=== PATIENT | male | born 1990 | race Hispanic/Latino ===

== ENCOUNTER 2017-04-21 20:42 | Inpatient (IN) | payer BC ==
[~2017-04-21 20:42] MED LIST: ISOVUE-370 76%-LOCM 1 ML ONE
[2017-04-21 21:31] LABS: Bilirubin Small (Negative); Blood, Urine Negative (Negative); Clarity CLEAR (Clear); Glucose, Urine (Dipstick) Negative (Negative); Leukocyte Negative (Negative); Nitrite Negative (Negative); Protein, Urine (Dipstick) Negative (Neg-Trace); Specific Gravity, Urine 1.031 (1.002-1.036); pH, Urine 6.5 (5.0-9.0)
[2017-04-21 21:38] LABS: #Eosinphils 0.3 thou/uL (0.0-0.7); #Lymphocytes 1.9 thou/uL (1.20-3.40); #Monocytes 0.8 thou/uL (0.11-0.59); #Neutrophils 4.5 thou/uL (1.40-6.50); %Basophils 0.3 % (0.0-1.0); %Eosinophils 3.7 % (0.0-10.0); %Lymphocytes 25.1 % (21.0-51.0); %Monocytes 10.5 % (0.0-10.0); %Neutrophils 60.4 % (42.0-75.0); Hemoglobin 14.8 g/dL (14.0-18.0); Mean Corpuscular HGB CONC 32.4 g/dL (32.0-36.0); Mean Corpuscular Hemoglobin 26.8 pg (27.0-31.0); Mean Corpuscular Volume 82.7 fl (80.0-94.0); Mean Platelet Volume 6.5 fL (7.4-10.4); Platelet Count 220 thou/uL (130-400); RBC Distribution Width 12.4 % (11.5-14.5); Red Blood Cell (RBC) Count 5.52 mill/uL (4.70-6.10); White Blood Cell (WBC) Count 7.4 thou/uL (4.8-10.8)
[2017-04-21 21:59] LABS: ALT (SGPT) 20 U/L (8-55); AST (SGOT) 15 U/L (5-34); Albumin 4.3 g/dL (3.5-5.0); Alkaline Phosphatase 68 U/L (40-150); Anion Gap 13 mmol/L (10-20); BUN (Urea Nitrogen) 14 mg/dL (8.9-20.6); Bilirubin, Total 0.4 mg/dL (0.2-1.2); Calc. Creatinine Clearance 0 mL/min (70-130); Carbon Dioxide 24 mmol/L (22-29); Chloride 105 mmol/L (98-107); Estimated GFR-MDRD 83; Globulin 2.7 g/dL (2.4-3.5); Glucose 94 mg/dL (70-105); Lipase 12 U/L (8-78); Potassium 4.1 mmol/L (3.5-5.1); Sodium 138 mmol/L (136-145)
--- NOTE | 2017-04-21 23:47 | CT ---
CT ABDOMEN AND PELVIS WITH CONTRAST 04/21/17 Multiple axial tomograms obtained through the abdomen and pelvis with IV enhancement. HISTORY: Abdominal pain. History of Crohn's disease. Diarrhea and nausea. FINDINGS: The lung bases are clear. Liver, spleen and pancreas are unremarkable. Stomach and duodenum unremarkable. Review of the small bowel reveals an abnormally dilated loop of small bowel in the lower abdomen/pelv is. This appears to represent a loop of mid to distal ileum. It measures up to 6 cm diameter in the a xial plane. It is a short segment of dilatation. Small bowel on each end of this dilated segment is d ecompressed and normal in caliber. No evidence of mural thickening. The appendix appears normal. The colon is unremarkable. No adenopathy identified. IMPRESSION: There is an abnormally dilated loop of what appears to be small bowel in the lower abdomen located in the mid pelvis region. This may be related to patient's known history of Crohn's disease. There is n o evidence of mural thickening associated with this loop of dilated bowel. Recommend GI consultation and consider dedicated small bowel exam such as CT enterography or routine small bowel exam with barium. POS: SYDNEY
[2017-04-22] MEDS ORDERED: Morphine 4 MG/ML Carpuject ONE ×2 (00:07→02:36)
[2017-04-22] MEDS ORDERED: methylPREDNISolone Sod Succ/PF 125 MG/2 ML VIAL ONE (00:48)
[2017-04-22] MEDS ORDERED: Water For Inject, Bacteriostat 30 ML ONE (00:48)
[2017-04-22] MEDS ORDERED: Ondansetron ODT 4 MG TAB PO PRN (03:20)
[2017-04-22] MEDS ORDERED: Ondansetron HCl/PF 4 MG/2 ML Vial IVP PRN ×2 (03:20→03:23)
[2017-04-22] MEDS ORDERED: Acetaminophen 325 MG TAB PO PRN (03:20)
[2017-04-22] MEDS ORDERED: Senokot 8.6 MG TAB PO PRN (03:20)
[2017-04-22] MEDS ORDERED: Calcium Carbonate 500 MG ChewTAB PO PRN (03:20)
[2017-04-22] MEDS ORDERED: hydrALAZINE 20 MG/ML VIAL SLOW IVP PRN (03:20)
[2017-04-22] MEDS ORDERED: Morphine 2 MG/ML SYRINGE SLOW IVP PRN (03:23)
[2017-04-22] MEDS ORDERED: Ondansetron ODT 4 MG TAB SL PRN (03:23)
[2017-04-22] MEDS ORDERED: Sodium Chloride 0.45% 1,000 ML IV SCH (03:30)
[2017-04-22] MEDS: Sodium Chloride 0.9% 1,000 ML IV SCH ×2 (03:59→19:29)
[2017-04-22] MEDS: metroNIDAZOLE 500 MG in Premix Bag 1 BAG IVPB SCH ×3 (05:32→20:42)
[2017-04-22 06:00] LABS: #Monocytes 0.2 thou/uL (0.11-0.59); #Neutrophils 6.2 thou/uL (1.40-6.50); %Basophils 0.1 % (0.0-1.0); %Eosinophils 0.6 % (0.0-10.0); %Lymphocytes 13.6 % (21.0-51.0); %Neutrophils 83.7 % (42.0-75.0); Hemoglobin 14.9 g/dL (14.0-18.0); Mean Corpuscular HGB CONC 33.1 g/dL (32.0-36.0); Mean Corpuscular Hemoglobin 27.2 pg (27.0-31.0); Mean Corpuscular Volume 82.3 fl (80.0-94.0); Mean Platelet Volume 6.6 fL (7.4-10.4); Platelet Count 235 thou/uL (130-400); RBC Distribution Width 12.2 % (11.5-14.5); Red Blood Cell (RBC) Count 5.48 mill/uL (4.70-6.10); White Blood Cell (WBC) Count 7.4 thou/uL (4.8-10.8)
[2017-04-22 06:14] LABS: ALT (SGPT) 21 U/L (8-55); AST (SGOT) 15 U/L (5-34); Albumin 4.4 g/dL (3.5-5.0); Alkaline Phosphatase 69 U/L (40-150); Anion Gap 13 mmol/L (10-20); BUN (Urea Nitrogen) 11 mg/dL (8.9-20.6); Bilirubin, Total 0.4 mg/dL (0.2-1.2); Calc. Creatinine Clearance 151 mL/min (70-130); Calcium 9.4 mg/dL (7.8-10.44); Carbon Dioxide 24 mmol/L (22-29); Chloride 106 mmol/L (98-107); Estimated GFR-MDRD 88; Globulin 2.9 g/dL (2.4-3.5); Glucose 114 mg/dL (70-105); Iron 51 ug/dL (65-175); Iron Binding Capacity, Total 310 mcg/dL (261-462); Potassium 4.8 mmol/L (3.5-5.1); Protein, Total 7.3 g/dL (6.0-8.3); Sodium 138 mmol/L (136-145)
--- NOTE | 2017-04-22 07:21 | HP ---
DATE OF ADMISSION: 04/22/2017 PRIMARY CARE PHYSICIAN: [facility]. CHIEF COMPLAINT: Abdominal discomfort. HISTORY OF PRESENT ILLNESS: Patient is a 27-year-old male with inflammatory bowel disease who presented to the emergency room with above complaints. The patient was diagnosed with inflammatory bowel disease in 2014. He used to be on prednisone in the past. Currently, he is on no medications. He was recently seen by Dr. Banks, Gastroenterology. He was scheduled to get EGD and colonoscopy as well as CT enterography next week. Over the last 24 hours, the patient developed gradual worsening pain in the left upper quadrant that started after eating breakfast. He also felt nauseous without any vomiting. He had watery stool as well. He denies any fevers, chills, sick contacts, recent travel. No generalized fatigue, joint pain, oral ulcers, hematochezia or hematemesis reported. His pain was sharp in nature, 8/ 10, crampy in nature. It was worse with eating. In the emergency room, initial vital signs showed temperature 98.8, respiration of 16, pulse of 53, blood pressure 122/78 with O2 saturation of 99% on room air. He underwent a CT scan of the abdomen and pelvis that showed abnormally dilated loops of small bowel in lower abdomen, located in the mid pelvis region. He was started on IV steroids with IV fluids after discussion with on- call Gastroenterology. He also received total of 8 mg morphine in the emergency room. PAST MEDICAL HISTORY: 1. Inflammatory bowel disease diagnosed in 2014. The patient discontinued taking steroids. 2. Chronic anemia. PAST SURGICAL HISTORY: Colonoscopy at [facility]. He is scheduled for EGD and colonoscopy next week. ALLERGIES: No known drug allergies. CURRENT HOME MEDICATIONS: Reviewed with the patient and none. SOCIAL HISTORY: Patient chews tobacco. He drinks alcohol socially, no drug use. FAMILY HISTORY: Negative for heart disease or colon malignancies. REVIEW OF SYSTEMS: The following complete review of systems was negative, unless otherwise mentioned in the HPI or below: Constitutional: Weight loss or gain, ability to conduct usual activities. Skin: Rash, itching. Eyes: Double vision, pain. ENT/Mouth: Nose bleeding, neck stiffness, pain, tenderness. Cardiovascular: Palpitations, dyspnea on exertion, orthopnea. Respiratory: Shortness of breath, wheezing, cough, hemoptysis, fever or night sweats. Gastrointestinal: Poor appetite, abdominal pain, heartburn, nausea, vomiting, constipation, or diarrhea. Genitourinary: Urgency, frequency, dysuria, nocturia. Musculoskeletal: Pain, swelling. Neurologic/Psychiatric: Anxiety, depression. Allergy/Immunologic: Skin rash, bleeding tendency. PHYSICAL EXAMINATION: VITAL SIGNS: As discussed above. GENERAL: A 27-year-old male in mild distress due to abdominal discomfort. HEENT: Head is atraumatic, normocephalic. Sclerae are anicteric. Moist mucous membrane, no oral lesion. NECK: Supple, no JVD appreciated. No carotid bruit. LUNGS: Clear to auscultation bilaterally. No wheezing or rales. HEART: S1, S2 present. Regular rate and rhythm. No murmurs, rubs or gallops appreciated. ABDOMEN: Soft. There was diffuse tenderness mainly localized on the left side. No rebound, guarding, no costovertebral angle tenderness noted. SKIN: Warm and dry. LYMPH NODES: No palpable lymph nodes in the neck. PERIPHERAL VASCULAR: Radial pulses palpable bilaterally. MUSCULOSKELETAL: No joint swelling or tenderness. LABORATORY FINDINGS AND IMAGING: CBC showed WBC 7.4 with hemoglobin 14.8, platelet of 220. Chemistries showed sodium 138, potassium 4.1, chloride 105, bicarbonate 24, BUN 14, creatinine 1.08. CRP was 1.84. Urinalysis was negative for WBC or bacteria. Influenza testing was negative. CT scan of the abdomen and pelvis by my review as discussed above. IMPRESSION: 1. Inflammatory bowel disease exacerbation (Crohn's flare). 2. Nausea with diarrhea, probably secondary to #1. 3. Chronic kidney disease stage 2. 4. Obesity with a BMI of 33.7 5. Ongoing tobacco abuse. The patient was counseled. 6. History of inflammatory bowel disease with medication noncompliance in the past. 7. Deep venous thrombosis prophylaxis with sequential compression devices. Walking program will be consulted. PLAN: The patient will be monitored on the medical floor. IV steroids has been started. We will get stool workup. We will start him on IV Cipro and Flagyl. We will add probiotics. IV hydration. Consult Gastroenterology. Check iron profile, vitamin B12, folic acid. We will check stool for ova and parasite. Clear liquid diet. Vitals q.4 hours. Plan of care was discussed with the patient. He stated understanding. MTDD
[2017-04-22] MEDS: Saccharomyces boulardii 250 MG CAP PO SCH (08:53)
[2017-04-22] MEDS: Famotidine 20 MG TAB PO SCH ×2 (08:53→20:42)
[2017-04-22] MEDS ORDERED: Docusate 100 MG CAP PO SCH (09:00)
[2017-04-22] MEDS: Morphine 4 MG/ML Carpuject SLOW IVP PRN (15:27)
--- NOTE | 2017-04-22 16:38 | CON ---
DATE OF CONSULTATION: 04/22/2017 REASON FOR CONSULTATION: Abdominal pain, history of Crohn disease. HISTORY OF PRESENT ILLNESS: Mr. Dominguez is a 27-year-old apparently just saw Dr. Nicholas Banks in [facility] this past Sunday or the Sunday before with Crohn disease. He was diagnosed in 2014 and re ports he was seeing a doctor in [facility]. It sounds like he presented initially in 2 015 with severe iron deficiency anemia and had upper and lower endoscopies and was given iron and the n IV iron and then ultimately had a capsule endoscopy of small bowel which he reports showed ulcers i n the small intestine. After that he was started on Remicade. He was on that for about 6 months whe n ultimately he was still having cramping and pain and his doctor thought that it was not working, so he has tried some different medications. He does not know what these were. At times ,he has been o n Asacol, Bentyl, Levsin and steroids. He had not been on anything about 6 months when he had gone t o see his PCP and talked to him about switching to another doctor and was referred to Dr. Banks. Dr. Banks saw him last week and had him set up for a CT enterography and endoscopies this coming week. Th e patient, however, had worsening abdominal cramping and pain and presented to the emergency room las t night at about midnight with intermittent sharp left upper quadrant pain that had started early on Sunday. When he tried to eat anything, it would get worse. He was having some diarrhea and nausea , but no vomiting. He had no recent sick contacts, no fever, no change in medications. In the emerg ency room he told the doctor he felt like this was not a Crohn flare as the Crohn pain was usually mo re diffuse. This was more focal. REVIEW OF SYSTEMS: Constitutional: No rashes or arthralgias, ocular changes, oral ulcers, myalgias or fever. HEENT, cardiovascular, respiratory, musculoskeletal, skin, neurologic, psychiatric all oth erwise negative as per HPI. PAST MEDICAL HISTORY: 1. Apparently the patient was diagnosed with Crohn disease in 2014 with treatment history outlined a bradly. 2. Prior history of anemia associated with his Crohn disease. PAST SURGICAL HISTORY: Previous endoscopies, upper and lower, as well as a capsule endoscopy of the small bowel. He reports that capsule was retained. SOCIAL HISTORY: The patient smokes. He drinks alcohol at times. Denies drug use. ALLERGIES: None known. MEDICATIONS AT HOME: None. MEDICATIONS HERE IN THE HOSPITAL: He was started on Pepcid, Cipro 400 mg IV b.i.d., Flagyl 500 mg t. i.d., Solu-Medrol 20 IV q.8 hours, Zofran, Saccharomyces boulardii, normal saline at 80 an hour. PHYSICAL EXAMINATION: GENERAL: He is a well-nourished, well-developed, muscular young man. VITAL SIGNS: Temperature is 97.5. He has been afebrile since admission, pulse 63, blood pressure 12 . HEENT: Oropharynx without lesions. NECK: Supple, without adenopathy. LUNGS: Clear. HEART: Regular rate and rhythm without clicks or murmurs. ABDOMEN: Soft, nontender. There is no rebound. There is no guarding. Bowel sounds are positive bu t not real loud. EXTREMITIES: No clubbing, cyanosis or edema. RECTAL: Deferred. LABORATORY STUDIES: White count 7.4, hemoglobin 14.9, platelet count 235. Sodium 138, potassium 4.8 , BUN and creatinine are 11 and 1. Liver function test normal, iron 51, TIBC 310, B12 of 399. Folat e 8, lipase 12. CT scan reviewed with Radiology that showed an area of dilation in the terminal ileu m and also an area dilated with a small bowel in the midline which seems to be proximal to the termin al ileum and from the terminal ileum by normal caliber bowel loops. This loop was about 6 cm in size, dilated. There is no active inflammation seen in the area. ASSESSMENT: History of Crohn disease, previous treatment with Remicade and 5-ASA drugs, but it is un clear what else has been treated with. Apparently he has been seen in the office recently. Dr. Banks requested those records. He has been without treatment for some time and now presents with worsenin g colicky abdominal pain. He has a CAT scan showing dilated terminal ileum and separate dilated loop of small bowel up to 6 cm in the mid distal small bowel. This may be more associated with chronic f ibrotic disease. PLAN: IV steroids, IV antibiotics, and observation. Consider CT enterography in a few days and see if the CT scan is changed. If it is not, it may be reasonable to consult surgery for fibrostenotic C rohn's and then started on biologic therapy after surgery. Other alternative will be to start some b iologic therapy here; however, he has been on Remicade already which has worked fastest and he probab ly cannot get on that again as he has been off for some time, he would be at high risk for untoward i nfusion reaction. I discussed these issues with the patient and his grandparents at bedside. Dr. Wright se like to resume his care tomorrow.
[2017-04-23 05:44] LABS: #Lymphocytes 1.1 thou/uL (1.20-3.40); #Monocytes 0.5 thou/uL (0.11-0.59); #Neutrophils 7.3 thou/uL (1.40-6.50); %Basophils 0.4 % (0.0-1.0); %Eosinophils 0.1 % (0.0-10.0); %Monocytes 5.1 % (0.0-10.0); %Neutrophils 82.4 % (42.0-75.0); Hemoglobin 15.1 g/dL (14.0-18.0); Mean Corpuscular HGB CONC 32.9 g/dL (32.0-36.0); Mean Corpuscular Hemoglobin 27.1 pg (27.0-31.0); Mean Corpuscular Volume 82.5 fl (80.0-94.0); Mean Platelet Volume 6.5 fL (7.4-10.4); Platelet Count 258 thou/uL (130-400); RBC Distribution Width 12.4 % (11.5-14.5); Red Blood Cell (RBC) Count 5.59 mill/uL (4.70-6.10); White Blood Cell (WBC) Count 8.9 thou/uL (4.8-10.8)
[2017-04-23] MEDS: metroNIDAZOLE 500 MG in Premix Bag 1 BAG IVPB SCH ×3 (05:44→20:39)
[2017-04-23] MEDS: Morphine 4 MG/ML Carpuject SLOW IVP PRN ×2 (05:50→20:07)
[2017-04-23 06:07] LABS: ALT (SGPT) 20 U/L (8-55); AST (SGOT) 16 U/L (5-34); Albumin 4.3 g/dL (3.5-5.0); Alkaline Phosphatase 69 U/L (40-150); Anion Gap 15 mmol/L (10-20); BUN (Urea Nitrogen) 10 mg/dL (8.9-20.6); Bilirubin, Total 0.4 mg/dL (0.2-1.2); Calc. Creatinine Clearance 157 mL/min (70-130); Calcium 9.3 mg/dL (7.8-10.44); Carbon Dioxide 19 mmol/L (22-29); Chloride 107 mmol/L (98-107); Estimated GFR-MDRD Greater than 90; Globulin 2.8 g/dL (2.4-3.5); Glucose 122 mg/dL (70-105); Potassium 4.2 mmol/L (3.5-5.1); Protein, Total 7.1 g/dL (6.0-8.3); Sodium 137 mmol/L (136-145)
[2017-04-23] MEDS ORDERED: Docusate 100 MG CAP PO PRN (06:45)
[2017-04-23] MEDS ORDERED: Simethicone Chewable 80 MG TAB PO PRN (06:45)
[2017-04-23] MEDS: Famotidine 20 MG TAB PO SCH ×2 (08:51→20:44)
[2017-04-23] MEDS: Saccharomyces boulardii 250 MG CAP PO SCH (08:51)
[2017-04-23] MEDS: Sodium Chloride 0.9% 1,000 ML IV SCH (11:55)
--- NOTE | 2017-04-23 14:39 | PRG ---
DATE OF SERVICE: 04/23/2017 SUBJECTIVE: Levi is feeling okay today. His intermittent abdominal pain persists with oral inta ke. He is tolerating his clear liquid diet just fine, a bit worried about taking anything more solid . There has been no vomiting today. He has been hemodynamically stable. He otherwise has no compla ints. OBJECTIVE: VITAL SIGNS: Temperature 97.8, pulse 55, blood pressure 116/71, 98% oxygen saturation on room air. GENERAL: In no acute distress. HEART: Regular rate and rhythm. LUNGS: Clear to auscultation bilaterally. ABDOMEN: Mild distention, tympanitic. Bowel sounds are hypoactive, but present, soft with mild diff use tenderness to palpation. EXTREMITIES: No peripheral edema. LABORATORY STUDIES: Sodium 137, potassium 4.2, BUN 10, creatinine 0.99. LFTs all normal. Vitamin B 12 and folic acid normal. Ferritin normal at 98.35. WBC 8.9, hemoglobin 15.1, platelets 258. ASSESSMENT AND PLAN: 1. Crohn's disease of the small bowel. 2. Ileal stricture. 3. Abdominal pain. The patient's imaging suggests a couple areas of stricture in the ileum. He is likely having acute o bstructive or semi-obstructive episodes underlying his abdominal pain. The question is how much of t he narrowing is due to active inflammation versus how much represents a fibrostenotic disease, which would be less responsive to medication. I think we should give him another day or two of the IV ster oids to see how much his symptoms improve, try to slowly advance his diet as tolerated. In the end, he will need to be on a low-residue diet. If we cannot really make symptomatic progress with the IV steroids over the next couple of days, then we would need to consider going ahead and getting surgica l consultation, and then we would likely start a biologic agent several weeks following surgery.
--- NOTE | 2017-04-23 17:16 | PDOC.PN ---
- Subjective Encounter Start Date: 04/23/17 Encounter Start Time: 09:00 Patient seen and examined. Abd discomfort slowly improving. No N/V/BM. No overnight events - Objective Resuscitation Status: Resuscitation Status FULL:Full Resuscitation MAR Reviewed: Yes Vital Signs & Weight: Vital Signs (12 hours) Temp Pulse Resp BP Pulse Ox 04/23/17 15:20 97.8 F 51 L 14 114/62 99 04/23/17 11:20 97.8 F 55 L 14 116/71 98 04/23/17 08:00 97.8 F 56 L 16 04/23/17 07:10 97.8 F 56 L 16 121/56 L 100 04/23/17 05:35 97.7 F 51 L 18 109/57 L 99 Weight Admit Weight 214 lb 15.904 oz Weight 209 lb I&O: 04/22/17 04/23/17 04/24/17 06:59 06:59 06:59 Intake Total 550 480 Balance 550 480 Result Diagrams: 04/23/17 05:19 04/23/17 05:19 Phys Exam - Physical Examination Constitutional: NAD Respiratory: no wheezing, no rhonchi Cardiovascular: RRR, no rub Gastrointestinal: soft, positive bowel sounds mild gen tenderness Musculoskeletal: no edema Neurological: non-focal, moves all 4 limbs Psychiatric: A&O x 3 Dx/Plan - Plan DVT proph w/SCDs IMPRESSION: 1. Inflammatory bowel disease exacerbation (Crohn's flare). 2. Nausea with diarrhea, probably secondary to #1. 3. Chronic kidney disease stage 2. 4. Obesity with a BMI of 33.7 5. Ongoing tobacco abuse. Counseled. 6. History of inflammatory bowel disease with medication noncompliance in the past. PLAN: * Cont IVF/Steroids/Atbx * GI following * No BM for stool sample * Cont other meds as below * AM labs Review of Systems - Review of Systems Respiratory: negative: Cough, Dry, Shortness of Breath, Hemoptysis, SOB with Excertion, Pleuritic Pain, Sputum, Wheezing Cardiovascular: negative: chest pain, palpitations, orthopnea, paroxysmal nocturnal dyspnea, edema, light headedness - Medications/Allergies Allergies/Adverse Reactions: Allergies Allergy/AdvReac Type Severity Reaction Status Date / Time No Known Drug Allergies Allergy Verified 04/22/17 03:21 Medications: Current Medications Acetaminophen (Tylenol) 650 mg PO Q4H PRN PRN Reason: Headache/Fever or Pain Calcium Carbonate (Tums) 1,000 mg PO Q4H PRN PRN Reason: Heartburn or Indigestion Docusate Sodium (Colace) 100 mg PO DAILYPRN PRN PRN Reason: Constipation Famotidine (Pepcid) 20 mg PO BID [facility] Last Admin: 04/23/17 08:51 Dose: 20 mg Hydralazine HCl (Apresoline) 10 mg SLOW IVP Q4H PRN PRN Reason: SBP Greater Than 180 Ciprofloxacin/Dextrose 400 mg/ (Device) 200 mls @ 200 mls/hr IVPB 0330,1530 [facility] Last Admin: 04/23/17 14:58 Dose: 200 mls Metronidazole 500 mg/ Device 100 mls @ 100 mls/hr IVPB 0430,1230,2030 [facility] Last Admin: 04/23/17 11:52 Dose: 100 mls Sodium Chloride (Normal Saline 0.9%) 1,000 mls @ 80 mls/hr IV .[id number] [facility] Last Admin: 04/23/17 11:55 Dose: 1,000 mls Methylprednisolone Sodium Succinate (Solu-Medrol) 20 mg IVP 0100,0900,1700 [facility] Last Admin: 04/23/17 16:22 Dose: 20 mg Morphine Sulfate (Morphine) 2 mg SLOW IVP Q2H PRN PRN Reason: Pain Last Admin: 04/23/17 05:50 Dose: 2 mg Ondansetron HCl (Zofran Odt) 4 mg PO Q6H PRN PRN Reason: Nausea/Vomiting Ondansetron HCl (Zofran) 4 mg IVP Q6H PRN PRN Reason: Nausea/Vomiting Saccharomyces Boulardii (Florastor) 250 mg PO DAILY [facility] Last Admin: 04/23/17 08:51 Dose: 250 mg Simethicone (Mylicon Chewable) 80 mg PO PCHS PRN PRN Reason: Gas Pain Sodium Chloride (Flush - Normal Saline) 10 ml IVF PRN PRN PRN Reason: Saline Flush Last Admin: 04/23/17 00:14 Dose: 10 ml Sodium Chloride (Flush - Normal Saline) 10 ml IVF BID [facility] Last Admin: 04/23/17 08:55 Dose: 10 ml
[2017-04-24] MEDS: metroNIDAZOLE 500 MG in Premix Bag 1 BAG IVPB SCH ×3 (04:55→19:52)
[2017-04-24 05:50] LABS: #Lymphocytes 1.7 thou/uL (1.20-3.40); #Monocytes 0.7 thou/uL (0.11-0.59); %Basophils 0.3 % (0.0-1.0); %Eosinophils 0.1 % (0.0-10.0); %Lymphocytes 17.5 % (21.0-51.0); %Monocytes 7.3 % (0.0-10.0); %Neutrophils 74.8 % (42.0-75.0); Mean Corpuscular HGB CONC 32.4 g/dL (32.0-36.0); Mean Corpuscular Hemoglobin 26.8 pg (27.0-31.0); Mean Corpuscular Volume 82.8 fl (80.0-94.0); Mean Platelet Volume 6.9 fL (7.4-10.4); Platelet Count 258 thou/uL (130-400); RBC Distribution Width 12.2 % (11.5-14.5); Red Blood Cell (RBC) Count 5.61 mill/uL (4.70-6.10); White Blood Cell (WBC) Count 9.4 thou/uL (4.8-10.8)
[2017-04-24 06:06] LABS: Anion Gap 13 mmol/L (10-20); BUN (Urea Nitrogen) 11 mg/dL (8.9-20.6); Calc. Creatinine Clearance 135 mL/min (70-130); Calcium 9.3 mg/dL (7.8-10.44); Carbon Dioxide 21 mmol/L (22-29); Chloride 107 mmol/L (98-107); Estimated GFR-MDRD 81; Glucose 91 mg/dL (70-105); Potassium 4.3 mmol/L (3.5-5.1); Sodium 137 mmol/L (136-145)
[2017-04-24] MEDS: Saccharomyces boulardii 250 MG CAP PO SCH (08:53)
[2017-04-24] MEDS: Famotidine 20 MG TAB PO SCH ×2 (08:53→19:53)
[2017-04-24] MEDS: Sodium Chloride 0.9% 1,000 ML IV SCH ×2 (08:58→22:08)
[2017-04-24] MEDS: traMADol HCl 50 MG TAB PO PRN ×2 (11:03→19:52)
--- NOTE | 2017-04-24 13:40 | PRG ---
DATE OF SERVICE: 04/24/2017 GASTROINTESTINAL INPATIENT DAILY PROGRESS NOTE SUBJECTIVE: Levi is feeling about the same today. He says he really has not been very hungry. Oral intake has been minimal today. He tried to eat some grits and increase his liquid intake last n ight, but started to have a lot of lower abdominal pain and more nausea with this, so he really has n ot had much today. No fever. Labs stable. He did have a bowel movement with suppositories. Stool studies show elevated fecal lactoferrin, but otherwise negative for pathogens. OBJECTIVE: VITAL SIGNS: Temperature 97.6, pulse 54, blood pressure 115/57, 99% oxygen saturation on room air. GENERAL: No acute distress. HEART: Regular rate and rhythm. LUNGS: Clear to auscultation bilaterally. ABDOMEN: Bowel sounds are present, but hypoactive, soft, some mild diffuse tenderness to palpation. EXTREMITIES: No peripheral edema. LABORATORY STUDIES: WBC 9.4, hemoglobin 15.0, platelets 258. Sodium 137, potassium 4.3, BUN 11, cre atinine 1.11. Stool C. difficile, rapid parasite screen, Campylobacter and Shiga toxin are all negat mireya. Stool lactoferrin is elevated. ASSESSMENT AND PLAN: 1. Crohn's disease of the small bowel with acute exacerbation. 2. Ileal stricturing disease, secondary to Crohn's disease. 3. Abdominal pain, ongoing. At this point, we would still like to get the steroids another day to work. 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 If we cannot get hi m to be able to advance his diet with improvement in his abdominal pain by tomorrow, then we would go ahead and consider surgical consultation on an inpatient basis for their opinion.
--- NOTE | 2017-04-24 18:40 | PDOC.PN ---
- Subjective Encounter Start Date: 04/24/17 Encounter Start Time: 13:00 Patient seen and examined. No new complaints. Abd pain similar to yesterday. Tolerating liqd diet. No overnight events - Objective Resuscitation Status: Resuscitation Status FULL:Full Resuscitation MAR Reviewed: Yes Vital Signs & Weight: Vital Signs (12 hours) Temp Pulse Resp BP Pulse Ox 04/24/17 15:00 98.1 F 52 L 16 117/56 L 99 04/24/17 11:30 97.6 F 54 L 14 115/57 L 99 04/24/17 08:00 97.7 F 65 14 99 04/24/17 07:40 97.7 F 65 14 119/62 99 Weight Admit Weight 214 lb 15.904 oz Weight 207 lb 8 oz I&O: 04/23/17 04/24/17 04/25/17 06:59 06:59 06:59 Intake Total 480 1571.0 Balance 480 1571.0 Result Diagrams: 04/24/17 05:28 04/24/17 05:28 Phys Exam - Physical Examination Constitutional: NAD Respiratory: no wheezing, no rhonchi Cardiovascular: RRR, no rub Gastrointestinal: soft, positive bowel sounds mild generalized tend, no rebound/guarding Musculoskeletal: no edema Neurological: moves all 4 limbs Dx/Plan - Plan out of bed/ambulate, DVT proph w/SCDs IMPRESSION: 1. Inflammatory bowel disease exacerbation (Crohn's flare) with Ileal stricture 2. Nausea with diarrhea, probably secondary to #1. 3. Chronic kidney disease stage 2. 4. Obesity with a BMI of 33.7 5. Ongoing tobacco abuse. Counseled. 6. History of inflammatory bowel disease with medication noncompliance in the past. PLAN: * Abd pain slowly improving * GI following * Cont IVF/Steroids/Atbx per GI * Diet advanced today * Stool w/u negative * Cont other meds as below Review of Systems - Review of Systems Respiratory: negative: Cough, Dry, Shortness of Breath, Hemoptysis, SOB with Excertion, Pleuritic Pain, Sputum, Wheezing Cardiovascular: negative: chest pain, palpitations, orthopnea, paroxysmal nocturnal dyspnea, edema, light headedness - Medications/Allergies Allergies/Adverse Reactions: Allergies Allergy/AdvReac Type Severity Reaction Status Date / Time No Known Drug Allergies Allergy Verified 04/22/17 03:21 Medications: Current Medications Acetaminophen (Tylenol) 650 mg PO Q4H PRN PRN Reason: Headache/Fever or Pain Calcium Carbonate (Tums) 1,000 mg PO Q4H PRN PRN Reason: Heartburn or Indigestion Docusate Sodium (Colace) 100 mg PO DAILYPRN PRN PRN Reason: Constipation Famotidine (Pepcid) 20 mg PO BID [facility] Last Admin: 04/24/17 08:53 Dose: 20 mg Hydralazine HCl (Apresoline) 10 mg SLOW IVP Q4H PRN PRN Reason: SBP Greater Than 180 Ciprofloxacin/Dextrose 400 mg/ (Device) 200 mls @ 200 mls/hr IVPB 0330,1530 [facility] Last Admin: 04/24/17 15:18 Dose: 200 mls Metronidazole 500 mg/ Device 100 mls @ 100 mls/hr IVPB 0430,1230,2030 [facility] Last Admin: 04/24/17 12:48 Dose: 100 mls Sodium Chloride (Normal Saline 0.9%) 1,000 mls @ 50 mls/hr IV .Q20H [facility] Methylprednisolone Sodium Succinate (Solu-Medrol) 20 mg IVP 0100,0900,1700 [facility] Last Admin: 04/24/17 17:42 Dose: 20 mg Morphine Sulfate (Morphine) 2 mg SLOW IVP Q2H PRN PRN Reason: Pain Last Admin: 04/23/17 20:07 Dose: 2 mg Ondansetron HCl (Zofran Odt) 4 mg PO Q6H PRN PRN Reason: Nausea/Vomiting Ondansetron HCl (Zofran) 4 mg IVP Q6H PRN PRN Reason: Nausea/Vomiting Saccharomyces Boulardii (Florastor) 250 mg PO DAILY [facility] Last Admin: 04/24/17 08:53 Dose: 250 mg Simethicone (Mylicon Chewable) 80 mg PO PCHS PRN PRN Reason: Gas Pain Last Admin: 04/23/17 18:50 Dose: 80 mg Sodium Chloride (Flush - Normal Saline) 10 ml IVF PRN PRN PRN Reason: Saline Flush Last Admin: 04/23/17 00:14 Dose: 10 ml Sodium Chloride (Flush - Normal Saline) 10 ml IVF BID [facility] Last Admin: 04/24/17 11:04 Dose: 10 ml Tramadol HCl (Ultram) 50 mg PO Q6H PRN PRN Reason: Pain Last Admin: 04/24/17 11:03 Dose: 50 mg
[2017-04-25] MEDS: Sodium Chloride 0.9% 1,000 ML IV SCH (03:52)
[2017-04-25] MEDS: metroNIDAZOLE 500 MG in Premix Bag 1 BAG IVPB SCH ×3 (03:52→19:58)
[2017-04-25] MEDS: Famotidine 20 MG TAB PO SCH ×2 (09:09→20:37)
[2017-04-25] MEDS: Saccharomyces boulardii 250 MG CAP PO SCH (09:09)
[2017-04-25] MEDS ORDERED: GoLYTELY 4,000 ml Bottle PO SCH (11:15)
--- NOTE | 2017-04-25 11:36 | PRG ---
DATE OF SERVICE: 04/25/2017 SUBJECTIVE: Levi ate some solid food for dinner yesterday, but then that caused quite a bit of l ower abdominal cramping pain. Again, he has not been hungry at all today and skips breakfast. He is able to tolerate liquids, but again it seems every time he eats solids he will have significant pain . OBJECTIVE: VITAL SIGNS: Temperature 97.5, pulse 62, blood pressure 122/59, 99% oxygen saturation on room air. GENERAL: No acute distress. HEART: Regular rate and rhythm. LUNGS: Clear to auscultation bilaterally. ABDOMEN: Soft, mild tenderness to palpation in the lower abdomen. EXTREMITIES: No peripheral edema. LABORATORY STUDIES: No new labs today. ASSESSMENT AND PLAN: 1. Crohn's disease of the small bowel. 2. Ileal stricture, with significant ileal dilation based on CT scan. 3. Abdominal pain. Unfortunately, Levi has not had a lot of symptomatic improvement following 3 days of IV steroids. I again reviewed his CT scan with the radiologist, and there is no evidence of any retained capsule in the small bowel. The patient might need surgical consultation sooner rather than later. We will go ahead and plan for EGD and colonoscopy tomorrow for staging of disease activity in extent. If he has isolated small bowel disease, this may be normal, but hopefully, I will be able to reach the aff ected area of his ileum. Further recommendations based on findings. We will administer bowel preparation this afternoon and e vening, and plan for procedure tomorrow. The patient agrees with the plan.
[2017-04-25 11:59] VITALS: BMI 32.5
--- NOTE | 2017-04-25 13:47 | PDOC.PN ---
- Subjective Encounter Start Date: 04/25/17 Encounter Start Time: 13:00 Patient seen and examined. No significant relief of abd discomfort from yesterday. No overnight events - Objective Resuscitation Status: Resuscitation Status FULL:Full Resuscitation MAR Reviewed: Yes Vital Signs & Weight: Vital Signs (12 hours) Temp Pulse Resp BP Pulse Ox 04/25/17 11:10 97.9 F 48 L 14 134/96 H 100 04/25/17 08:00 97.5 F L 62 14 99 04/25/17 07:00 97.5 F L 62 14 122/59 L 99 04/25/17 03:50 98.4 F 42 L 16 123/61 100 Weight Admit Weight 214 lb 15.904 oz Weight 207 lb 8 oz I&O: 04/24/17 04/25/17 04/26/17 06:59 06:59 06:59 Intake Total 1571.0 3560 Balance 1571.0 3560 Result Diagrams: 04/24/17 05:28 04/24/17 05:28 Phys Exam - Physical Examination Constitutional: NAD Respiratory: no wheezing, no rhonchi Cardiovascular: RRR, no rub Gastrointestinal: soft, positive bowel sounds mild gen tend, no rigidity Musculoskeletal: no edema Neurological: moves all 4 limbs Dx/Plan - Plan out of bed/ambulate, DVT proph w/SCDs IMPRESSION: 1. Inflammatory bowel disease exacerbation (Crohn's flare) with Ileal stricture 2. Nausea with diarrhea, probably secondary to #1. 3. Chronic kidney disease stage 2. 4. Obesity with a BMI of 33.7 5. Ongoing tobacco abuse. Counseled. 6. History of inflammatory bowel disease with medication noncompliance in the past. PLAN: * EGD/Colon in AM - Bowel prep today * GI following * Cont IVF/Steroids/Atbx per GI * Clear liqd diet today * Cont other meds as below Review of Systems - Review of Systems Respiratory: negative: Cough, Dry, Shortness of Breath, Hemoptysis, SOB with Excertion, Pleuritic Pain, Sputum, Wheezing Cardiovascular: negative: chest pain, palpitations, orthopnea, paroxysmal nocturnal dyspnea, edema, light headedness Gastrointestinal: Abdominal Pain, Other (poor appetite). negative: Nausea, Vomiting, Diarrhea, Constipation, Melena, Hematochezia Genitourinary: negative: Dysuria, Frequency, Incontinence, Hematuria, Retention - Medications/Allergies Allergies/Adverse Reactions: Allergies Allergy/AdvReac Type Severity Reaction Status Date / Time No Known Drug Allergies Allergy Verified 04/22/17 03:21 Medications: Current Medications Acetaminophen (Tylenol) 650 mg PO Q4H PRN PRN Reason: Headache/Fever or Pain Calcium Carbonate (Tums) 1,000 mg PO Q4H PRN PRN Reason: Heartburn or Indigestion Docusate Sodium (Colace) 100 mg PO DAILYPRN PRN PRN Reason: Constipation Famotidine (Pepcid) 20 mg PO BID [facility] Last Admin: 04/25/17 09:09 Dose: 20 mg Hydralazine HCl (Apresoline) 10 mg SLOW IVP Q4H PRN PRN Reason: SBP Greater Than 180 Ciprofloxacin/Dextrose 400 mg/ (Device) 200 mls @ 200 mls/hr IVPB 0330,1530 [facility] Last Admin: 04/25/17 02:40 Dose: 200 mls Metronidazole 500 mg/ Device 100 mls @ 100 mls/hr IVPB 0430,1230,2030 [facility] Last Admin: 04/25/17 13:10 Dose: 100 mls Sodium Chloride (Normal Saline 0.9%) 1,000 mls @ 50 mls/hr IV .Q20H [facility] Last Admin: 04/25/17 03:52 Dose: 1,000 mls Methylprednisolone Sodium Succinate (Solu-Medrol) 20 mg IVP 0100,0900,1700 [facility] Last Admin: 04/25/17 09:09 Dose: 20 mg Morphine Sulfate (Morphine) 2 mg SLOW IVP Q2H PRN PRN Reason: Pain Last Admin: 04/23/17 20:07 Dose: 2 mg Ondansetron HCl (Zofran Odt) 4 mg PO Q6H PRN PRN Reason: Nausea/Vomiting Ondansetron HCl (Zofran) 4 mg IVP Q6H PRN PRN Reason: Nausea/Vomiting Polyethylene Glycol/Electrolytes (Golytely) 4,000 ml PO ONE [facility] Stop: 04/25/17 21:00 Last Admin: 04/25/17 13:17 Dose: 4,000 ml Saccharomyces Boulardii (Florastor) 250 mg PO DAILY [facility] Last Admin: 04/25/17 09:09 Dose: 250 mg Simethicone (Mylicon Chewable) 80 mg PO PCHS PRN PRN Reason: Gas Pain Last Admin: 04/23/17 18:50 Dose: 80 mg Sodium Chloride (Flush - Normal Saline) 10 ml IVF PRN PRN PRN Reason: Saline Flush Last Admin: 04/23/17 00:14 Dose: 10 ml Sodium Chloride (Flush - Normal Saline) 10 ml IVF BID [facility] Last Admin: 04/25/17 09:10 Dose: 10 ml Tramadol HCl (Ultram) 50 mg PO Q6H PRN PRN Reason: Pain Last Admin: 04/24/17 19:52 Dose: 50 mg
[2017-04-26] MEDS: metroNIDAZOLE 500 MG in Premix Bag 1 BAG IVPB SCH ×2 (04:35→15:21)
[2017-04-26] MEDS: Sodium Chloride 0.9% 1,000 ML IV SCH (05:05)
[2017-04-26 06:12] LABS: #Lymphocytes 1.3 thou/uL (1.20-3.40); #Monocytes 0.5 thou/uL (0.11-0.59); #Neutrophils 7.3 thou/uL (1.40-6.50); %Basophils 0.1 % (0.0-1.0); %Eosinophils 0.2 % (0.0-10.0); %Lymphocytes 14.1 % (21.0-51.0); %Monocytes 5.3 % (0.0-10.0); %Neutrophils 80.3 % (42.0-75.0); Hemoglobin 15.9 g/dL (14.0-18.0); Mean Corpuscular HGB CONC 33.5 g/dL (32.0-36.0); Mean Corpuscular Hemoglobin 27.5 pg (27.0-31.0); Mean Corpuscular Volume 81.9 fl (80.0-94.0); Mean Platelet Volume 6.8 fL (7.4-10.4); Platelet Count 293 thou/uL (130-400); RBC Distribution Width 12.2 % (11.5-14.5); Red Blood Cell (RBC) Count 5.79 mill/uL (4.70-6.10)
[2017-04-26 06:30] LABS: ALT (SGPT) 18 U/L (8-55); AST (SGOT) 14 U/L (5-34); Albumin 4.3 g/dL (3.5-5.0); Alkaline Phosphatase 65 U/L (40-150); Anion Gap 14 mmol/L (10-20); BUN (Urea Nitrogen) 11 mg/dL (8.9-20.6); Bilirubin, Total 0.5 mg/dL (0.2-1.2); Calc. Creatinine Clearance 146 mL/min (70-130); Calcium 9.4 mg/dL (7.8-10.44); Carbon Dioxide 23 mmol/L (22-29); Chloride 105 mmol/L (98-107); Estimated GFR-MDRD 88; Globulin 2.8 g/dL (2.4-3.5); Glucose 121 mg/dL (70-105); Magnesium 2.4 mg/dL (1.6-2.6); Potassium 4.1 mmol/L (3.5-5.1); Protein, Total 7.1 g/dL (6.0-8.3); Sodium 138 mmol/L (136-145)
[2017-04-26] MEDS: Famotidine 20 MG TAB PO SCH ×2 (10:32→20:30)
[2017-04-26] MEDS: Saccharomyces boulardii 250 MG CAP PO SCH (10:32)
--- NOTE | 2017-04-26 15:41 | OP ---
DATE OF PROCEDURE: 04/26/2017 SURGEON: Nicholas Banks M.D. [employer] SURGEON: None. PROCEDURE: 1. EGD with biopsies. 2. Colonoscopy, diagnostic. INDICATION: 1. Crohn's disease. 2. Generalized abdominal pain. 3. Ileal stricture based on CT scan. MEDICATIONS: See anesthesia record. FINDINGS: After discussion of the risks, benefits, and alternatives of the procedure, informed conse nt was obtained and witnessed. Pre-endoscopic cardiopulmonary examination was satisfactory. Timeout was performed before sedation was achieved. Sedation was achieved with anesthesia assistance in the endoscopy unit. A Pentax adult upper endoscope was placed into the oropharynx and passed through th e cricopharyngeus under direct visualization. The esophageal mucosa appeared normal throughout with a normal-appearing Z-line. The endoscope was then advanced into the stomach. Forward and retroflexe d views of the entire gastric mucosa were obtained. The gastric mucosa appeared normal throughout. The endoscope was advanced through the pylorus and into the first and second portions of the duodenum . In the duodenal bulb, there were multiple very shallow nonbleeding erosions. Biopsies were obtain ed from the duodenal bulb for Histology. The upper endoscope was then completely withdrawn and the p atient was repositioned. Digital rectal exam was performed, which was unremarkable. A Pentax adult colonoscope was inserted i nto the anus and passed forward to the cecum in the usual fashion. The cecal base was identified by the appendiceal orifice as well as the ileocecal valve. The terminal ileum was intubated. I advance d about 25-30 cm into the terminal ileum and an attempt to reach of the ileal stricture; however, I w as unable to reach any stricture or any other area of mucosal abnormality in the ileum to 25 cm exami shanna where examine the ileal mucosa appeared normal. The ileocecal valve was normal. The entire colo crispin mucosa also appeared normal throughout. There was no evidence of any involvement of the colon wi th his Crohn's disease. Retroflexion in the rectum was unremarkable. The colonoscope was then compl etely withdrawn and the patient allowed to recover. The patient tolerated the procedure well. There were no immediate post-procedure complications. IMPRESSION: 1. Duodenitis in the bulb, biopsied. 2. Otherwise, normal esophagogastroduodenoscopy. 3. Normal colonoscopy to the terminal ileum, with 25 cm of terminal ileum examined. RECOMMENDATIONS: 1. Follow biopsy results. 2. Surgical consultation for consideration of partial ileal resection versus stricturoplasty.
[2017-04-26] MEDS ORDERED: PROPOFOL 200 MG/20 ML VIAL ONE (16:08)
--- NOTE | 2017-04-26 18:28 | CON ---
DATE OF CONSULTATION: 04/26/2017 CONSULTING PHYSICIAN: Dr. Nicholas Banks. REASON FOR CONSULTATION: Crohn's disease, suspected small bowel stricture, abdominal pain. HISTORY OF PRESENT ILLNESS: This patient is a very pleasant 27-year-old male. He has a his tory of Crohn's disease diagnosed in 2014 and treated with a variety of medications with intermittent success. He notes that he had been off all medications for the past few months and initiated care w ang Banks within the past week. Unfortunately, before further evaluation could be performed per Sherrill Banks, the patient presented to the emergency room complaining of severe abdominal pain this past S aturday (04/21/2017). CT scan was obtained when he was in the emergency room revealing an abnormal d ilated segment what was presumed to be small bowel down within his pelvis, this appeared to be up to 6 cm in width. It could not be discerned exactly with segment of small bowel was involved. Interest ingly, there does not appear to be any appreciable bowel dilatation around this area to suggest a chr onic obstruction. The patient denies any vomiting, but has had nausea associated with this. It is n oted that his laboratory evaluation when he was admitted in each day subsequently has revealed a norm al CBC with a normal white blood cell count and normal differential. His chemistry profile reveals e ssentially normal electrolytes, normal liver function tests, and normal protein levels. The patient has been treated with intravenous antibiotics and intravenous steroids. He has had no si gnificant resolution of his symptoms. He notes that when he is drinking clear liquids and he is esse ntially without symptoms. When he tried to advance his diet to solid food that he had recurrence of the same symptoms with inability to tolerate any meaningful solid oral intake. Dr. Banks performed upper and lower endoscopy earlier today with essentially normal findings within hi s colon extending into about 20 cm of distal small bowel and essentially normal findings in his upper endoscopy as well. I am consulted at this time to consider surgical options regarding the patient's intra-abdominal problems, so that he may be able to resume a regular or solid diet and eventually be able to be discharged from the hospital. PAST MEDICAL HISTORY: 1. Crohn's disease diagnosed in 2014. 2. History of severe anemia caused by his Crohn's disease prior to his diagnosis. PREHOSPITAL MEDICATIONS: None. CURRENT MEDICATIONS: Include Cipro, Flagyl, Pepcid, and methylprednisolone. ALLERGIES: No known drug allergies. PERSONAL AND SOCIAL HISTORY: He was raised by his grandparents in [place] and both of them are pres ent at bedside. He currently lives in [place] with his girlfriend and child. He works in the [employer]. He denies smoking at all, but notes that he does drink alcohol occasionally, but not every day . REVIEW OF SYSTEMS: The patient notes frequent and common diarrhea. FAMILY HISTORY: Noncontributory. PHYSICAL EXAMINATION: VITAL SIGNS: Temperature 98.1. He has been afebrile during his entire hospitalization. Pulse is 45 and regular. Blood pressure 134/78. His height is 5 feet 7 inches. His weight is 207 pounds. GENERAL: Well-developed, well-nourished, pleasant, dark skinned young man. He is alert and oriented x3. He is exceedingly pleasant and polite. As mentioned, grandparents are present at bedside. HEAD, EYES, EARS, NOSE, AND THROAT: Unremarkable. NECK: Supple. LUNGS: Clear to auscultation. CARDIAC: Regular rate and rhythm. ABDOMEN: Mildly obese, soft, nontender, nondistended. There is no tympanitic bowel sounds nor any f ocal area of discomfort. EXTREMITIES: Unremarkable. ASSESSMENT: The patient with a presumed abnormal segment of small bowel present within his pelvis on his admission CT scan. He has a history of Crohn's disease and has inability to tolerate solid oral intake without pain and cramping. I recommend a repeat CT scan with oral contrast. I have spoken w [facility] (Dr. Salas) regarding this and he believes that a CT scan with oral contrast should s uffice to help us to figure out what this is. I will obtain that study this evening. I will tentati vely plan laparoscopic evaluation with possible small bowel resection depending upon findings both wi th the CT scan and intraoperatively. I have discussed the planned operation in detail with the patie nt. He understands and agrees to proceed.
--- NOTE | 2017-04-26 20:23 | PDOC.PN ---
- Subjective Encounter Start Date: 04/26/17 Encounter Start Time: 18:00 Patient seen and examined. Abd discomfort +. No overnight events - Objective Resuscitation Status: Resuscitation Status FULL:Full Resuscitation MAR Reviewed: Yes Vital Signs & Weight: Vital Signs (12 hours) Temp Pulse Resp BP Pulse Ox 04/26/17 20:00 97.6 F 53 L 18 123/66 100 04/26/17 15:42 98.1 F 45 L 12 134/78 98 04/26/17 12:00 97.8 F 47 L 16 120/66 100 Weight Admit Weight 214 lb 15.904 oz Weight 207 lb 8 oz I&O: 04/25/17 04/26/17 04/27/17 06:59 06:59 06:59 Intake Total 3560 3950.5 1500 Balance 3560 3950.5 1500 Result Diagrams: 04/26/17 05:45 04/26/17 05:45 Phys Exam - Physical Examination Constitutional: NAD Respiratory: no wheezing, no rhonchi Cardiovascular: RRR, no rub Gastrointestinal: soft, positive bowel sounds gen tend - mild Musculoskeletal: no edema Neurological: moves all 4 limbs Dx/Plan - Plan DVT proph w/SCDs IMPRESSION: 1. Inflammatory bowel disease exacerbation (Crohn's flare) with Ileal stricture 2. Nausea with diarrhea, probably secondary to #1. 3. Chronic kidney disease stage 2. 4. Obesity with a BMI of 33.7 5. Ongoing tobacco abuse. Counseled. 6. History of inflammatory bowel disease with medication noncompliance in the past. PLAN: * s/p EGD/Colon - duodenitis + * Gen surg consulted * Possible Laparascopy in AM * Repeat CT with oral contrast today * GI following * Cont IVF/Steroids/Atbx * Clear liqd diet today * Cont other meds as below Review of Systems - Review of Systems Respiratory: negative: Cough, Dry, Shortness of Breath, Hemoptysis, SOB with Excertion, Pleuritic Pain, Sputum, Wheezing Cardiovascular: negative: chest pain, palpitations, orthopnea, paroxysmal nocturnal dyspnea, edema, light headedness - Medications/Allergies Allergies/Adverse Reactions: Allergies Allergy/AdvReac Type Severity Reaction Status Date / Time No Known Drug Allergies Allergy Verified 04/22/17 03:21 Medications: Current Medications Acetaminophen (Tylenol) 650 mg PO Q4H PRN PRN Reason: Headache/Fever or Pain Calcium Carbonate (Tums) 1,000 mg PO Q4H PRN PRN Reason: Heartburn or Indigestion Docusate Sodium (Colace) 100 mg PO DAILYPRN PRN PRN Reason: Constipation Famotidine (Pepcid) 20 mg PO BID [facility] Last Admin: 04/26/17 10:32 Dose: Not Given Hydralazine HCl (Apresoline) 10 mg SLOW IVP Q4H PRN PRN Reason: SBP Greater Than 180 Sodium Chloride (Normal Saline 0.9%) 1,000 mls @ 50 mls/hr IV .Q20H [facility] Last Admin: 04/26/17 05:05 Dose: 1,000 mls Methylprednisolone Sodium Succinate (Solu-Medrol) 20 mg IVP 0100,0900,1700 [facility] Last Admin: 04/26/17 18:33 Dose: 20 mg Morphine Sulfate (Morphine) 2 mg SLOW IVP Q2H PRN PRN Reason: Pain Last Admin: 04/23/17 20:07 Dose: 2 mg Ondansetron HCl (Zofran Odt) 4 mg PO Q6H PRN PRN Reason: Nausea/Vomiting Ondansetron HCl (Zofran) 4 mg IVP Q6H PRN PRN Reason: Nausea/Vomiting Saccharomyces Boulardii (Florastor) 250 mg PO DAILY [facility] Last Admin: 04/26/17 10:32 Dose: Not Given Simethicone (Mylicon Chewable) 80 mg PO PCHS PRN PRN Reason: Gas Pain Last Admin: 04/23/17 18:50 Dose: 80 mg Sodium Chloride (Flush - Normal Saline) 10 ml IVF PRN PRN PRN Reason: Saline Flush Last Admin: 04/23/17 00:14 Dose: 10 ml Sodium Chloride (Flush - Normal Saline) 10 ml IVF BID [facility] Last Admin: 04/26/17 10:32 Dose: Not Given Tramadol HCl (Ultram) 50 mg PO Q6H PRN PRN Reason: Pain Last Admin: 04/24/17 19:52 Dose: 50 mg
--- NOTE | 2017-04-26 22:01 | CT ---
CT ABDOMEN AND PELVIS WITH IV AND ENTERIC CONTRAST 04/26/17 PROVIDED CLINICAL HISTORY: Abdominal pain. FINDINGS: Comparison is made with the examination dated 04/21/17. The visualized lung bases appear clear. Solid abdominal organs demonstrate an unremarkable CT appearance. There is no bowel dilatation, inflammatory fat stranding, free fluid or free air apparent. The dilate d fluid filled bowel seen on the prior CT examination is no longer evident. The osseous structures demonstrate no concerning osteoblastic or osteolytic lesions. IMPRESSION: No evidence for an acute process. POS: SYDNEY
[2017-04-27] MEDS: Sodium Chloride 0.9% 1,000 ML IV SCH (07:53)
[2017-04-27] MEDS: Saccharomyces boulardii 250 MG CAP PO SCH (08:03)
[2017-04-27] MEDS: Famotidine 20 MG TAB PO SCH ×2 (08:03→22:03)
[2017-04-27] MEDS ORDERED: HYDROmorphone 0.5 MG/0.5 ML SYRINGE ONE ×2 (12:00→14:00)
[2017-04-27] MEDS ORDERED: Fentanyl 100 MCG/2 ML VIAL ONE ×2 (12:00→15:05)
[2017-04-27] MEDS ORDERED: cefOXitin 2 GM, Syringe 1 ML in Sterile Water 10 ML SLOW IVP SCH (12:00)
[2017-04-27] MEDS ORDERED: Midazolam HCl 2 mg/2 ml Vial SLOW IVP SCH (12:15)
[2017-04-27] MEDS ORDERED: Lidocaine 2% w/Epinephrine 1:200K 20 ML VIAL ONE (12:16)
[2017-04-27] MEDS ORDERED: Bupivacaine PF 0.5% 30 ML VIAL ONE (12:16)
[2017-04-27] MEDS ORDERED: Midazolam HCl 2 mg/2 ml Vial ONE (12:33)
[2017-04-27] MEDS ORDERED: Ondansetron HCl/PF 4 MG/2 ML Vial ONE (14:05)
[2017-04-27] MEDS ORDERED: Lidocaine 1% PF 5 ML VIAL ONE (14:05)
[2017-04-27] MEDS ORDERED: Dexamethasone 20 MG/5 ML VIAL ONE (14:05)
[2017-04-27] MEDS ORDERED: Ketorolac Tromethamine 30 MG/ML VIAL ONE (14:05)
[2017-04-27] MEDS ORDERED: Glycopyrrolate 0.2 MG/ML 5 ML SYRINGE ONE (14:05)
[2017-04-27] MEDS ORDERED: PROPOFOL 200 MG/20 ML VIAL ONE (14:05)
[2017-04-27] MEDS ORDERED: Hydrocortisone Sod Succ/PF 100 mg/2 ml Vial IVP SCH (16:00)
[2017-04-27] MEDS ORDERED: Ondansetron HCl/PF 4 MG/2 ML Vial IVP PRN (16:31)
[2017-04-27] MEDS ORDERED: Promethazine HCl 25 MG/ML VIAL IM PRN (16:31)
[2017-04-27] MEDS ORDERED: hydrALAZINE 20 MG/ML VIAL SLOW IVP PRN (16:31)
[2017-04-27] MEDS ORDERED: Morphine 2 MG/ML SYRINGE SLOW IVP PRN (16:38)
[2017-04-27] MEDS: D5 1/2 NS w/20 mEq KCL 1,000 ML IV SCH (17:24)
--- NOTE | 2017-04-27 18:25 | PDOC.PN ---
- Subjective Encounter Start Date: 04/27/17 Encounter Start Time: 18:23 Patient seen and examined. s/p partial bowel resection. Abd pain +. No overnight events - Objective Resuscitation Status: Resuscitation Status FULL:Full Resuscitation MAR Reviewed: Yes Vital Signs & Weight: Vital Signs (12 hours) Temp Pulse Resp BP Pulse Ox 04/27/17 11:00 98 F 50 L 20 111/55 L 99 04/27/17 08:00 98 F 56 L 20 98 04/27/17 07:30 98 F 56 L 20 119/71 98 Weight Admit Weight 214 lb 15.904 oz Weight 207 lb 8 oz I&O: 04/26/17 04/27/17 04/28/17 06:59 06:59 06:59 Intake Total 3950.5 2750 Balance 3950.5 2750 Result Diagrams: 04/26/17 05:45 04/26/17 05:45 Phys Exam - Physical Examination Constitutional: NAD Respiratory: no wheezing, no rhonchi Cardiovascular: RRR, no rub Gastrointestinal: soft mild gen tenderness Musculoskeletal: no edema Dx/Plan - Plan DVT proph w/lovenox, DVT proph w/SCDs IMPRESSION: 1. Inflammatory bowel disease exacerbation (Crohn's flare) with Ileal stricture s/p partial resection 04/27 2. Nausea with diarrhea, probably secondary to #1. improved 3. Chronic kidney disease stage 2. 4. Obesity with a BMI of 33.7 5. Ongoing tobacco abuse. Counseled. 6. History of inflammatory bowel disease with medication noncompliance in the past. PLAN: * s/p EGD/Colon - duodenitis + * Gen surg following * GI following * Cont IVF/Steroids/Atbx * Clear liqd diet today * Cont other meds as below * Pain control Review of Systems - Review of Systems Respiratory: negative: Cough, Dry, Shortness of Breath, Hemoptysis, SOB with Excertion, Pleuritic Pain, Sputum, Wheezing Cardiovascular: negative: chest pain, palpitations, orthopnea, paroxysmal nocturnal dyspnea, edema, light headedness - Medications/Allergies Allergies/Adverse Reactions: Allergies Allergy/AdvReac Type Severity Reaction Status Date / Time No Known Drug Allergies Allergy Verified 04/22/17 03:21 Medications: Current Medications Acetaminophen (Tylenol) 650 mg PO Q4H PRN PRN Reason: Headache/Fever or Pain Hydrocodone Bitart/Acetaminophen (Fraser 7.5/325) 1 tab PO Q4H PRN PRN Reason: Moderate Pain (4-6) Hydrocodone Bitart/Acetaminophen (Fraser 7.5/325) 2 tab PO Q4H PRN PRN Reason: Severe Pain (7-10) Albuterol/Ipratropium (Duoneb) 3 ml NEB Q4H PRN PRN Reason: Wheezing Calcium Carbonate (Tums) 1,000 mg PO Q4H PRN PRN Reason: Heartburn or Indigestion Enoxaparin Sodium (Lovenox) 40 mg SC 0900 [facility] Famotidine (Pepcid) 20 mg PO Q12HR [facility] Famotidine (Pepcid) 20 mg SLOW IVP Q12HR [facility] Hydralazine HCl (Apresoline) 10 mg SLOW IVP Q4H PRN PRN Reason: SBP Greater Than 180 Hydralazine HCl (Apresoline) 10 mg SLOW IVP Q4H PRN PRN Reason: SBP > 170 or DBP > 100 Hydrocortisone Sodium Succinate (Solu-Cortef) 50 mg IVP 0800,2000 [facility] Acetaminophen 1,000 mg/ Device 100 mls @ 400 mls/hr IVPB Q6HR [facility] Stop: 04/28/17 12:14 Potassium Chloride/Dextrose/Sod Cl (D5 1/2 Ns W/20 Meq Kcl) 1,000 mls @ 120 mls /hr IV .Q8H20M [facility] Last Admin: 04/27/17 17:24 Dose: 1,000 mls Ketorolac Tromethamine (Toradol) 30 mg IVP Q6HR [facility] Stop: 04/30/17 18:01 Morphine Sulfate (Morphine) 2 mg SLOW IVP Q2H PRN PRN Reason: Mild Pain (1-3) Last Admin: 04/27/17 17:20 Dose: 2 mg Morphine Sulfate (Morphine) 4 mg SLOW IVP Q2H PRN PRN Reason: Moderate Pain (4-6) Morphine Sulfate (Morphine) 6 mg SLOW IVP Q2H PRN PRN Reason: Severe Pain (7-10) Ondansetron HCl (Zofran) 4 mg IVP Q6H PRN PRN Reason: Nausea/Vomiting Ondansetron HCl (Zofran) 4 mg IVP Q6H PRN PRN Reason: Nausea/Vomiting Promethazine HCl (Phenergan) 12.5 mg IM Q4H PRN PRN Reason: Nausea/Vomiting Simethicone (Mylicon Chewable) 80 mg PO PCHS PRN PRN Reason: Gas Pain Last Admin: 04/23/17 18:50 Dose: 80 mg Sodium Chloride (Flush - Normal Saline) 10 ml IVF PRN PRN PRN Reason: Saline Flush Last Admin: 04/23/17 00:14 Dose: 10 ml Sodium Chloride (Flush - Normal Saline) 10 ml IVF BID [facility] Last Admin: 04/27/17 08:03 Dose: 10 ml Sodium Chloride (Flush - Normal Saline) 10 ml IVF PRN PRN PRN Reason: Saline Flush
[2017-04-27] MEDS: Ketorolac Tromethamine 30 MG/ML VIAL IVP SCH ×2 (19:00→23:40)
[2017-04-27] MEDS: Acetaminophen 1,000 MG in Premix Bag 1 BAG IVPB SCH ×2 (19:00→23:40)
--- NOTE | 2017-04-27 19:49 | PRG ---
DATE OF SERVICE: 04/27/2017 SUBJECTIVE: Levi went down for a partial small bowel resection earlier today. I discussed this with Dr. Ojeda. The procedure went well. He had about 8 inches of very diseased small bowel, whic h was completely resected. No other abnormalities were visualized. Levi is currently feeling ok ay. He has a little bit of soreness in the incision site. OBJECTIVE: VITAL SIGNS: Temperature 98.0, pulse 50, blood pressure 111/55, 99% oxygen saturation on room air. GENERAL: No acute distress. HEART: Regular rate and rhythm. LUNGS: Clear to auscultation bilaterally. ABDOMEN: Bowel sounds are hypoactive, soft, generalized tenderness to palpation. No rebound tendern ess. EXTREMITIES: No peripheral edema. LABORATORY STUDIES: No new labs today. ASSESSMENT AND PLAN: Crohn's disease of the small bowel, now status post partial small bowel resecti on earlier today. Anticipate the patient will do well once he recovers bowel function. Need to wean him off the steroids over the next couple of days. We will still plan to get him on a biologic agen t for his Crohn's in the upcoming weeks to try to prevent recurrence. GI will continue to follow chadwick seay. Diet advancement per surgical service.
[2017-04-27] MEDS: Morphine 5 MG/ML SYRINGE SLOW IVP PRN ×2 (21:51→23:34)
[2017-04-27] MEDS: Famotidine/PF 20 mg/2ml Vial SLOW IVP SCH (21:53)
[2017-04-27] MEDS: Hydrocortisone Sod Succ/PF 100 mg/2 ml Vial IVP SCH (21:56)
[2017-04-28] MEDS: D5 1/2 NS w/20 mEq KCL 1,000 ML IV SCH ×3 (01:38→17:48)
[2017-04-28] MEDS: Morphine 5 MG/ML SYRINGE SLOW IVP PRN ×5 (01:39→23:37)
[2017-04-28 04:46] LABS: #Lymphocytes 1.5 thou/uL (1.20-3.40); #Monocytes 1.1 thou/uL (0.11-0.59); #Neutrophils 8.2 thou/uL (1.40-6.50); %Basophils 0.1 % (0.0-1.0); %Eosinophils 0.3 % (0.0-10.0); %Lymphocytes 13.4 % (21.0-51.0); %Monocytes 10.5 % (0.0-10.0); %Neutrophils 75.7 % (42.0-75.0); Hemoglobin 14.4 g/dL (14.0-18.0); Mean Corpuscular HGB CONC 33.3 g/dL (32.0-36.0); Mean Corpuscular Hemoglobin 27.6 pg (27.0-31.0); Mean Corpuscular Volume 82.8 fl (80.0-94.0); Mean Platelet Volume 6.6 fL (7.4-10.4); Platelet Count 277 thou/uL (130-400); RBC Distribution Width 12.3 % (11.5-14.5); Red Blood Cell (RBC) Count 5.24 mill/uL (4.70-6.10); White Blood Cell (WBC) Count 10.9 thou/uL (4.8-10.8)
[2017-04-28 04:59] LABS: Anion Gap 11 mmol/L (10-20); BUN (Urea Nitrogen) 12 mg/dL (8.9-20.6); Calc. Creatinine Clearance 160 mL/min (70-130); Calcium 8.7 mg/dL (7.8-10.44); Carbon Dioxide 25 mmol/L (22-29); Chloride 106 mmol/L (98-107); Estimated GFR-MDRD Greater than 90; Glucose 112 mg/dL (70-105); Magnesium 2.2 mg/dL (1.6-2.6); Sodium 138 mmol/L (136-145)
[2017-04-28] MEDS: Ketorolac Tromethamine 30 MG/ML VIAL IVP SCH ×4 (05:06→23:37)
[2017-04-28] MEDS: Acetaminophen 1,000 MG in Premix Bag 1 BAG IVPB SCH ×2 (05:08→11:54)
[2017-04-28] MEDS: Famotidine/PF 20 mg/2ml Vial SLOW IVP SCH ×2 (09:17→20:40)
[2017-04-28] MEDS: Hydrocortisone Sod Succ/PF 100 mg/2 ml Vial IVP SCH ×2 (09:18→20:40)
[2017-04-28] MEDS: Famotidine 20 MG TAB PO SCH ×2 (09:35→20:40)
[2017-04-28] MEDS: Enoxaparin Sodium 40 MG/0.4 ML SYRINGE SC SCH (09:45)
--- NOTE | 2017-04-28 10:42 | PRG ---
GI INPATIENT DAILY PROGRESS NOTE DATE OF SERVICE: 04/28/2017 SUBJECTIVE: Levi has some nausea and continued abdominal discomfort with a bit of improvement. He has not passed gas or had any bowel movements. He is tolerating ice chips. He had a bit of a cough and trying to use the incentive spirometer. No fever. OBJECTIVE: VITAL SIGNS: Temperature 98.1, pulse 94, blood pressure 114/73 and 98% oxygen saturation on room air. GENERAL: No acute distress. HEART: Regular rate and rhythm. LUNGS: Clear to auscultation bilaterally. ABDOMEN: Bowel sounds are essentially absent, nondistended, some mild diffuse tenderness to palpation, but no guarding or rebound tenderness. EXTREMITIES: No peripheral edema. LABORATORY STUDIES: WBC 10.9, hemoglobin 14.4 and platelets 277. Sodium 138, potassium 4.0, BUN 12 and creatinine 0.94. ASSESSMENT AND PLAN: 1. Crohn disease of the small bowel, status post partial small bowel resection , postoperative day #1. 2. Postoperative ileus. Await return of bowel function. Diet advancement per surgical service. The patient will need to be weaned off the steroids, likely switching to oral prednisone tomorrow and wean down over the course of the week. GI will continue to follow. DESTINI
--- NOTE | 2017-04-28 11:21 | PRG ---
DATE OF SERVICE: 04/28/2017 SUBJECTIVE: Mr. Dominguez is postoperative day #1 from a small bowel resection for Crohn's. He is feeling well today. Minimal nausea, tolerating ice chips. No flatus yet. OBJECTIVE: VITAL SIGNS: Stable. Urine output 1600. ABDOMEN: Soft and nondistended. He has appropriate dhiraj-incisional tenderness. His laparoscopic and small midline incisions are healing well. LABORATORY DATA: White count 10.9 and hematocrit are stable at 43. Electrolytes are normal. ASSESSMENT AND PLAN: Status post small bowel resection for Crohn's, awaiting return of bowel function. Crohn's management per GI. I am going to leave him on ice chips rather than advancing diet, since he is having some nausea and has not yet passed any gas. He was instructed to ambulate frequently. [facility]
[2017-04-28] MEDS ORDERED: HYDROcodone/Acetaminophen 7.5/325 mg Tablet PO PRN ×2 (14:40)
--- NOTE | 2017-04-28 16:05 | OP ---
DATE OF PROCEDURE: 04/27/2017 PREOPERATIVE DIAGNOSIS: Crohn disease, suspected small bowel stricture. POSTOPERATIVE DIAGNOSIS: Crohn disease, suspected small bowel stricture. OPERATION PERFORMED: Laparoscopic segmental small bowel resection (removing about 9 inches of small bowel). SURGEON: Leonel Ojeda M.D. ANESTHESIA: General endotracheal. INDICATIONS: The patient is a 27-year-old male with a several year history of Crohn disease. He was hospitalized recently due to cramping and abdominal pain and inability to tolerate solid food. He w as taken to the operating room at this time for laparoscopic evaluation. CT scan documents a persist ently dilated segment of small bowel. OPERATIVE PROCEDURE IN DETAIL: Informed consent was obtained. The patient was taken to the operatin g room where general endotracheal anesthesia was obtained with the patient in supine position. Abdom en was trimmed of hair, prepped with ChloraPrep, and draped in sterile fashion. Local anesthetic was infiltrated and 5 mm infraumbilical incision was created through which a Veress needle was passed in to the peritoneal cavity. Pneumoperitoneum was established using carbon dioxide up to a pressure of 15 mmHg. A 5 mm trocar port was passed through this same incision. Laparoscopic camera was passed t hrough this port. Under direct vision, 2 additional 5 mm left abdominal ports were placed. Initial examination of the abdomen reveals no acute inflammatory process. Liver, gallbladder, stomac h were visualized and unremarkable. The omentum was nonadherent to any structures and was easily mob ilized into the upper abdomen. I ran the small bowel from the ileocecal valve retrograde to the liga ment of Treitz. The entire small bowel was within normal limits with no evidence of inflammatory pro cess, creeping fat, or adhesions, except for a single of focal segment of what appeared to be proxima l ileum. This was probably 60 cm proximal to the ileocecal valve. This one segment has a significan tly dilated segment measuring about 6 inches in length. There were also adhesions between the small bowel and the mesentery of the dilated segment. Due to his symptoms and the lack of abnormality in a ny other location, I elected to resect this segment. Some of the adhesions between the small bowel a nd the mesentery of the dilated segment were taken down sharply. I then created a 4 cm incision exte nding inferior from the umbilicus, dissected through the fascia to open this and placed a small Chato s wound retractor. Through this opening, I was able to mobilize the abnormal segment of small bowel. The remaining adhesions were lysed until the bowel was without any evidence of adhesions. I identi fied the segments of small bowel that were entirely normal proximal and distal and divided these with the BEREKET-75 stapler. The mesentery of the dilated segment was taken down using the LigaSure device a nd the specimen was passed off the field. Meticulous hemostasis was maintained using the LigaSure de vice as well as electrocautery. The area around the wound retractor was toweled off and segregated instruments were utilized. Entero tomies were created at the 2 segments of the small bowel and anastomosis was created with the [id number]-75 stapler. The enterotomy was then closed using another transverse firing of the same stapler. After the bowel was closed, all instruments that had been used to open were passed off the field and gloves were changed and the towels around the field were removed. The anastomosis was buttressed with several interrupted sutures of 3-0 silk. The anastomosed bowel w as then dropped back down into the abdominal cavity. The area of the wound retractor was clamped and pneumoperitoneum was reestablished. I explored the a david of the anastomosis laparoscopically ensuring that had a good confirmation and there was no eviden ce of any bleeding. The bowel was entirely viable and viable. All ports and instruments were removed under direct vision. Pneumoperitoneum was carefully evacuated . Then, 0.25% Marcaine with epinephrine was infiltrated in each port site. Skin edges approximated with 4-0 Monocryl subcuticular suture. Dermabond was placed externally. There were no complications . The patient tolerated the procedure well and was taken to recovery room in stable condition.
--- NOTE | 2017-04-28 18:41 | PDOC.PN ---
- Subjective Encounter Start Date: 04/28/17 Encounter Start Time: 12:30 Patient seen and examined. Abd pain +. No overnight events - Objective Resuscitation Status: Resuscitation Status FULL:Full Resuscitation MAR Reviewed: Yes Vital Signs & Weight: Vital Signs (12 hours) Temp Pulse Resp BP BP Pulse Ox 04/28/17 15:16 97.8 F 53 L 14 104/66 97 04/28/17 11:45 97.6 F 54 L 14 103/67 98 04/28/17 08:00 97.6 F 54 L 14 114/73 98 Weight Admit Weight 214 lb 15.904 oz Weight 207 lb 8 oz I&O: 04/27/17 04/28/17 04/29/17 06:59 06:59 06:59 Intake Total 2750 1640 Output Total 1600 Balance 2750 40 Result Diagrams: 04/28/17 03:03 04/28/17 03:03 Phys Exam - Physical Examination Constitutional: NAD Respiratory: no wheezing, no rhonchi Cardiovascular: RRR, no rub Gastrointestinal: soft, positive bowel sounds mild gen tenderness Musculoskeletal: no edema Neurological: moves all 4 limbs Dx/Plan - Plan DVT proph w/SCDs IMPRESSION: 1. Inflammatory bowel disease exacerbation (Crohn's flare) with Ileal stricture s/p partial resection 04/27 2. Nausea with diarrhea, probably secondary to #1. improved 3. Chronic kidney disease stage 2. 4. Obesity with a BMI of 33.7 5. Ongoing tobacco abuse. Counseled. 6. History of inflammatory bowel disease with medication noncompliance in the past. PLAN: * s/p EGD/Colon - duodenitis + * Gen surg following * GI following * Cont IVF/Steroids/Atbx * On ice chips * Cont other meds as below * Pain control * Ambulate Review of Systems - Review of Systems Respiratory: negative: Cough, Dry, Shortness of Breath, Hemoptysis, SOB with Excertion, Pleuritic Pain, Sputum, Wheezing Cardiovascular: negative: chest pain, palpitations, orthopnea, paroxysmal nocturnal dyspnea, edema, light headedness - Medications/Allergies Allergies/Adverse Reactions: Allergies Allergy/AdvReac Type Severity Reaction Status Date / Time No Known Drug Allergies Allergy Verified 04/22/17 03:21 Medications: Current Medications Acetaminophen (Tylenol) 650 mg PO Q4H PRN PRN Reason: Headache/Fever or Pain Hydrocodone Bitart/Acetaminophen ([place] 7.5/325) 1 tab PO Q4H PRN PRN Reason: Moderate Pain (4-6) Hydrocodone Bitart/Acetaminophen ([place] 7.5/325) 2 tab PO Q4H PRN PRN Reason: Severe Pain (7-10) Albuterol/Ipratropium (Duoneb) 3 ml NEB Q4H PRN PRN Reason: Wheezing Calcium Carbonate (Tums) 1,000 mg PO Q4H PRN PRN Reason: Heartburn or Indigestion Enoxaparin Sodium (Lovenox) 40 mg SC 0900 [facility] Last Admin: 04/28/17 09:45 Dose: 40 mg Famotidine (Pepcid) 20 mg PO Q12HR [facility] Last Admin: 04/28/17 09:35 Dose: Not Given Famotidine (Pepcid) 20 mg SLOW IVP Q12HR [facility] Last Admin: 04/28/17 09:17 Dose: 20 mg Hydralazine HCl (Apresoline) 10 mg SLOW IVP Q4H PRN PRN Reason: SBP Greater Than 180 Hydralazine HCl (Apresoline) 10 mg SLOW IVP Q4H PRN PRN Reason: SBP > 170 or DBP > 100 Hydrocortisone Sodium Succinate (Solu-Cortef) 50 mg IVP 08,1999 [facility] Last Admin: 04/28/17 09:18 Dose: 50 mg Potassium Chloride/Dextrose/Sod Cl (D5 1/2 Ns W/20 Meq Kcl) 1,000 mls @ 120 mls /hr IV .Q8H20M [facility] Last Admin: 04/28/17 17:48 Dose: 1,000 mls Ketorolac Tromethamine (Toradol) 30 mg IVP Q6HR [facility] Stop: 04/30/17 18:01 Last Admin: 04/28/17 17:48 Dose: 30 mg Morphine Sulfate (Morphine) 2 mg SLOW IVP Q2H PRN PRN Reason: Mild Pain (1-3) Last Admin: 04/27/17 17:20 Dose: 2 mg Morphine Sulfate (Morphine) 4 mg SLOW IVP Q2H PRN PRN Reason: Moderate Pain (4-6) Last Admin: 04/28/17 01:39 Dose: 4 mg Morphine Sulfate (Morphine) 6 mg SLOW IVP Q2H PRN PRN Reason: Severe Pain (7-10) Last Admin: 04/28/17 17:16 Dose: 6 mg Ondansetron HCl (Zofran) 4 mg IVP Q6H PRN PRN Reason: Nausea/Vomiting Last Admin: 04/28/17 05:04 Dose: 4 mg Ondansetron HCl (Zofran) 4 mg IVP Q6H PRN PRN Reason: Nausea/Vomiting Promethazine HCl (Phenergan) 12.5 mg IM Q4H PRN PRN Reason: Nausea/Vomiting Simethicone (Mylicon Chewable) 80 mg PO PCHS PRN PRN Reason: Gas Pain Last Admin: 04/23/17 18:50 Dose: 80 mg Sodium Chloride (Flush - Normal Saline) 10 ml IVF PRN PRN PRN Reason: Saline Flush Last Admin: 04/23/17 00:14 Dose: 10 ml Sodium Chloride (Flush - Normal Saline) 10 ml IVF BID IRMA Last Admin: 04/28/17 09:35 Dose: Not Given Sodium Chloride (Flush - Normal Saline) 10 ml IVF PRN PRN PRN Reason: Saline Flush
[2017-04-29] MEDS: D5 1/2 NS w/20 mEq KCL 1,000 ML IV SCH ×2 (01:49→10:06)
[2017-04-29] MEDS: Morphine 5 MG/ML SYRINGE SLOW IVP PRN ×3 (04:16→14:01)
[2017-04-29 04:53] LABS: HBCM Index 0.08 S/CO (0-0.79); HBSAg Index 0.23 S/CO (0-0.99); Hep A IgM AB Non-Reactive (NonReactive); Hep A IgM S/CO 0.27 S/CO (0-0.79); Hep B Surf Ag Non-Reactive S/CO (NonReactive); Hep C IgG Ab Non-Reactive (NonReactive); Hep C Index 0.12 S/CO (0-0.79); Hepatitis B Core IGM Abs Non-Reactive (NonReactive)
[2017-04-29] MEDS: Ketorolac Tromethamine 30 MG/ML VIAL IVP SCH ×4 (05:30→22:52)
[2017-04-29] MEDS: Hydrocortisone Sod Succ/PF 100 mg/2 ml Vial IVP SCH (09:10)
[2017-04-29] MEDS: Famotidine 20 MG TAB PO SCH ×2 (09:11→21:00)
[2017-04-29] MEDS: Famotidine/PF 20 mg/2ml Vial SLOW IVP SCH ×2 (09:11→22:28)
[2017-04-29] MEDS: Enoxaparin Sodium 40 MG/0.4 ML SYRINGE SC SCH (10:09)
--- NOTE | 2017-04-29 13:27 | PRG ---
DATE OF SERVICE: 04/29/2017 GI INPATIENT DAILY PROGRESS NOTE SUBJECTIVE: Levi is doing better today. He is up on his feet and walking around. Abdomen remai ns a bit sore especially if he has to cough, but he has no nausea. He has been passing flatus. Dr. Sanders has advanced his diet to clear liquids and he is just about to start on that. PHYSICAL EXAMINATION: VITAL SIGNS: Temperature 97.6, pulse 49, blood pressure 120/76, 97% oxygen saturation on room air. GENERAL: No acute distress. HEART: Regular rate and rhythm. LUNGS: Clear to auscultation bilaterally. ABDOMEN: Surgical incision healing well, soft, tender to palpation diffusely, but no guarding, rebou nd tenderness. EXTREMITIES: No peripheral edema. LABORATORY STUDIES: Viral hepatitis serology is negative. QuantiFERON pending. No other new labs t his morning. ASSESSMENT AND PLAN: 1. Crohn's disease of the small bowel. 2. Ileal stricture, status post resection, postoperative day #2. 3. Postoperative ileus, improving. We will see how he does with clear liquids. Continue dietary ad vancement per the Surgical Service. I will discontinue the IV steroids at this point and I have outl ined an 8-day prednisone taper to start tomorrow. Take 40 mg daily for 2 days, then 30 mg daily for 2 days, then 20 mg daily for 2 days, then 10 mg daily for 2 days, and then stop. I will follow him u p in the GI Clinic in the next few weeks with results of QuantiFERON test, and discuss probably sangeeta seay him on biologic therapy for longer term prevention of recurrence of disease.
--- NOTE | 2017-04-29 14:58 | PDOC.PN ---
- Subjective Encounter Start Date: 04/29/17 Encounter Start Time: 14:56 Mr. Dominguez was seen today in follow-up. He notes some soreness in his abdomen, primarily when he coughs. No other complaints. - Objective Resuscitation Status: Resuscitation Status FULL:Full Resuscitation MAR Reviewed: Yes Vital Signs & Weight: Vital Signs (12 hours) Temp Pulse Resp BP BP Pulse Ox 04/29/17 12:38 97.6 F 49 L 16 120/76 97 04/29/17 09:27 58 L 18 118/71 04/29/17 08:14 97.9 F 46 L 16 101/63 97 04/29/17 08:00 97.6 F 49 L 16 04/29/17 04:00 97.8 F 60 16 106/65 98 Weight Admit Weight 214 lb 15.904 oz Weight 207 lb 8 oz I&O: 04/28/17 04/29/17 04/30/17 06:59 06:59 06:59 Intake Total 1640 2880 Output Total 1600 Balance 40 2880 Result Diagrams: 04/28/17 03:03 04/28/17 03:03 Phys Exam - Physical Examination HEENT: PERRLA Respiratory: no wheezing, no rales, no rhonchi, clear to auscultation bilateral Cardiovascular: RRR, no significant murmur Gastrointestinal: soft + diffuse tenderness, no rebound or guarding + BS Musculoskeletal: no edema Dx/Plan (1) Crohn disease Code(s): K50.90 - CROHN'S DISEASE, UNSPECIFIED, WITHOUT COMPLICATIONS Status: Acute (2) Small bowel stricture Code(s): K56.699 - OTHER INTESTNL OBST UNSP TO PARTIAL VERSUS COMPLETE OBST Status: Acute - Plan * Mr. Dominguez is admitted with a Crohn's disease flair, and is s/p small bowel resection for an ileal stricture. His diet has been advanced to a clear liquid diet. * Continue the steroid nazario as per GI * Disposition as per General Surgery.
--- NOTE | 2017-04-30 01:10 | PRG ---
DATE OF SERVICE: 04/29/2017 SUBJECTIVE: Mr. Dominguez is feeling good today. He has passed some gas. He is not nauseated. OBJECTIVE: He is afebrile with normal vital signs. His incisions are healing well and he has normal bowel sounds. ASSESSMENT: Doing well status post small-bowel resection with bowel function beginning to resume. I have written for clear liquids, advance to full liquids if he tolerates these. He was encouraged to continue to ambulate.
[2017-04-30] MEDS: Ketorolac Tromethamine 30 MG/ML VIAL IVP SCH (05:30)
[2017-04-30] MEDS ORDERED: predniSONE 20 MG TAB PO SCH (08:00)
[2017-04-30] MEDS: Famotidine 20 MG TAB PO SCH (08:53)
[2017-04-30] MEDS: Enoxaparin Sodium 40 MG/0.4 ML SYRINGE SC SCH (08:53)
[2017-04-30 10:02] VITALS: TEMP 97.8
[2017-04-30 10:03] VITALS: BP 110/74
--- NOTE | 2017-04-30 22:33 | DIS ---
DATE OF ADMISSION: 04/22/2017 DATE OF DISCHARGE: 04/30/2017 PRIMARY CARE PHYSICIAN: [facility] in [place]. DISCHARGE DISPOSITION: Home. PRIMARY DISCHARGE DIAGNOSES: 1. Crohn's disease flare. 2. Ileal stricture. 3. Status post small bowel resection. 4. History of chronic anemia. DISCHARGE MEDICATIONS: Include prednisone 10 mg as directed as well as hydrocodone 5/325 one tablet q.4 hours as needed. PROCEDURES DONE DURING ADMISSION: The patient had a CT scan of the abdomen and pelvis, which demonst rated some abnormally dilated loops of small bowel in the lower abdomen and the mid pelvic region. T here were some mural thickening associated with this dilated bile. The patient had a resection of sm all bowel approximately 9 inches of small bowel. CODE STATUS: FULL CODE. ALLERGIES: No known drug allergies. HOSPITAL COURSE: Mr. Dominguez is a pleasant 27-year-old gentleman who was admitted to the hospital wi complaints of severe abdominal pain. It was primarily in the left upper quadrant and he was havin g nausea without vomiting. He was evaluated in the ER and had a CT scan of the abdomen and pelvis, t his demonstrated an area of a dilated small bowel and possible stricture. He was evaluated by both G astroenterology as well as General Surgery. There was a trial of treating him conservatively with IV steroids and antibiotics initially; however, he did not improve. Repeat CT scan showed persistence of this area of dilated small bowel. He was seen by General Surgery and underwent a small bowel rese ction. He had an uneventful postoperative course. He was able to tolerate a full liquid diet prior to discharge and was subsequently discharged home on a prolonged steroid taper. He is to follow up w [facility] General Surgery as instructed.
[2017-05-02] MEDS ORDERED: predniSONE 20 MG TAB PO SCH (08:00)
[2017-05-04] MEDS ORDERED: predniSONE 20 MG TAB PO SCH (08:00)
[2017-05-06] MEDS ORDERED: predniSONE 5 MG TAB PO SCH (08:00)
== END 2017-04-30 10:03 | disposition home or self-care (01) | DRG 330 ==
LOC: ERS 20:42 → OBSVTOIN 04-22 00:30 → ONC 04-22 00:30 → SURG A 04-27 16:27
PROVIDERS: ADMIT Internal Medicine; ATTEND Internal Medicine
PROC: 0DJD8ZZ Inspection of Lower Intestinal Tract, Via Natural or Artificial Opening Endoscopic (ICD-10-PCS; 2017-04-26)
PROC: 0DB98ZX Excision of Duodenum, Via Natural or Artificial Opening Endoscopic, Diagnostic (ICD-10-PCS; 2017-04-26)
PROC: 0DB84ZZ Excision of Small Intestine, Percutaneous Endoscopic Approach (ICD-10-PCS; principal; 2017-04-27)
DX: K50.012 Crohn's disease of small intestine with intestinal obstruction (principal); K56.7 Ileus, unspecified; E66.9 Obesity, unspecified; I12.9 Hypertensive chronic kidney disease with stage 1 through stage 4 chronic kidney disease, or unspecified chronic kidney disease; N18.2 Chronic kidney disease, stage 2 (mild); K29.80 Duodenitis without bleeding; F17.210 Nicotine dependence, cigarettes, uncomplicated; Z68.33 Body mass index [BMI] 33.0-33.9, adult; Z91.14 Patient's other noncompliance with medication regimen
CPT/HCPCS: 36415; 74177; 80048; 80053; 80074; 81003; 82607; 82728; 82746; 83540; 83550; 83630; 83690; 83735; 85025; 85652; 86140; 86480; 87045; 87046; 87324; 87328; 87329; 87449; 87804; 87899; 88305; 88307; 88312; 96361; 96374; 96375; 96376; 99406; J2270; A4216; J0131; J0694; J0744; J1100; J1170; J1650; J1720; J1885; J2001; J2250; J2405; J2704; J2920; J2930; J3010; J7506; S0020; S0028

== ENCOUNTER 2017-05-06 22:38 | Emergency (ER) | payer BC ==
[2017-05-06] MEDS ORDERED: HYDROcodone/Acetaminophen 5/325 mg Tablet ONE (23:10)
[2017-05-06 23:13] LABS: #Basophils 0.1 thou/uL (0.0-0.2); #Eosinphils 0.1 thou/uL (0.0-0.7); #Lymphocytes 2.2 thou/uL (1.20-3.40); #Monocytes 1.1 thou/uL (0.11-0.59); #Neutrophils 9.9 thou/uL (1.40-6.50); %Basophils 0.6 % (0.0-1.0); %Eosinophils 0.9 % (0.0-10.0); %Lymphocytes 16.2 % (21.0-51.0); %Monocytes 8.1 % (0.0-10.0); %Neutrophils 74.2 % (42.0-75.0); Hemoglobin 14.9 g/dL (14.0-18.0); Mean Corpuscular HGB CONC 34.2 g/dL (32.0-36.0); Mean Corpuscular Hemoglobin 28.2 pg (27.0-31.0); Mean Corpuscular Volume 82.5 fl (80.0-94.0); Mean Platelet Volume 6.7 fL (7.4-10.4); Platelet Count 306 thou/uL (130-400); RBC Distribution Width 12.3 % (11.5-14.5); Red Blood Cell (RBC) Count 5.29 mill/uL (4.70-6.10); White Blood Cell (WBC) Count 13.4 thou/uL (4.8-10.8)
[2017-05-06 23:14] LABS: Bilirubin Negative (Negative); Blood, Urine Negative (Negative); Clarity CLEAR (Clear); Glucose, Urine (Dipstick) Negative (Negative); Leukocyte Negative (Negative); Nitrite Negative (Negative); Protein, Urine (Dipstick) Negative (Neg-Trace); Specific Gravity, Urine 1.027 (1.002-1.036); Urobilinogen 0.2 mg/dL (0.2-1.0); pH, Urine 6.5 (5.0-9.0)
[2017-05-06 23:22] LABS: Amphetamine Not Detected (NotDetected); Benzodiazepine Screen Not Detected (NotDetected); Cocaine Metabolite Screen Not Detected (NotDetected); Medtox Reader # READER 1; Methamphetamine Not Detected (NotDetected); Opiate Screen Not Detected (NotDetected); Phencyclidine (PCP) Not Detected (NotDetected); THC/Cannabinoid Screen Not Detected (NotDetected)
[2017-05-06 23:23] LABS: Barbiturates Screen Not Detected (NotDetected); Medtox Control Line Valid? VALID (VALID); Methadone Not Detected (NotDetected); Oxycodone Screen Not Detected (NotDetected); Tricyclic Screen Not Detected (NotDetected)
[2017-05-06 23:33] LABS: ALT (SGPT) 31 U/L (8-55); AST (SGOT) 19 U/L (5-34); Albumin 4.4 g/dL (3.5-5.0); Alkaline Phosphatase 66 U/L (40-150); Anion Gap 13 mmol/L (10-20); BUN (Urea Nitrogen) 14 mg/dL (8.9-20.6); Bilirubin, Total 0.3 mg/dL (0.2-1.2); Calc. Creatinine Clearance 0 mL/min (70-130); Calcium 9.7 mg/dL (7.8-10.44); Carbon Dioxide 28 mmol/L (22-29); Chloride 102 mmol/L (98-107); Estimated GFR-MDRD Greater than 90; Globulin 3.3 g/dL (2.4-3.5); Glucose 95 mg/dL (70-105); Potassium 4.8 mmol/L (3.5-5.1); Protein, Total 7.7 g/dL (6.0-8.3); Sodium 138 mmol/L (136-145)
== END 2017-05-06 23:40 | disposition home or self-care (01) ==
LOC: ERS 22:38
DX: G89.18 Other acute postprocedural pain (principal); R10.30 Lower abdominal pain, unspecified; K51.90 Ulcerative colitis, unspecified, without complications; F17.220 Nicotine dependence, chewing tobacco, uncomplicated; Z71.6 Tobacco abuse counseling
CPT/HCPCS: 36415; 80053; 80306; 81003; 85025; 99406

== ENCOUNTER 2017-06-01 10:38 | Outpatient (CLI) | payer BC ==
[2017-06-01] MEDS ORDERED: Iopamidol 370 76% 100 ML VIAL ONE (14:28)
== END 2017-06-01 10:39 | disposition home or self-care (01) ==
LOC: BICCT 10:38
PROVIDERS: ATTEND Internal Medicine
DX: R10.33 Periumbilical pain (principal); K59.00 Constipation, unspecified; K43.2 Incisional hernia without obstruction or gangrene
CPT/HCPCS: 74177

== ENCOUNTER 2017-06-22 10:24 | Outpatient (CLI) | payer BC ==
[2017-06-22 11:33] LABS: #Eosinphils 0.1 thou/uL (0.0-0.7); #Lymphocytes 1.9 thou/uL (1.20-3.40); #Monocytes 0.6 thou/uL (0.11-0.59); #Neutrophils 3.1 thou/uL (1.40-6.50); %Basophils 0.6 % (0.0-1.0); %Eosinophils 2.3 % (0.0-10.0); %Lymphocytes 32.6 % (21.0-51.0); %Monocytes 11.2 % (0.0-10.0); %Neutrophils 53.3 % (42.0-75.0); Hemoglobin 14.8 g/dL (14.0-18.0); Mean Corpuscular HGB CONC 32.9 g/dL (32.0-36.0); Mean Corpuscular Hemoglobin 26.5 pg (27.0-31.0); Mean Corpuscular Volume 80.7 fl (80.0-94.0); Mean Platelet Volume 6.9 fL (7.4-10.4); Platelet Count 235 thou/uL (130-400); RBC Distribution Width 13.4 % (11.5-14.5); Red Blood Cell (RBC) Count 5.59 mill/uL (4.70-6.10); White Blood Cell (WBC) Count 5.7 thou/uL (4.8-10.8)
[2017-06-22 11:48] LABS: Anion Gap 12 mmol/L (10-20); BUN (Urea Nitrogen) 13 mg/dL (8.9-20.6); Calc. Creatinine Clearance 0 mL/min (70-130); Calcium 9.9 mg/dL (7.8-10.44); Carbon Dioxide 27 mmol/L (22-29); Chloride 106 mmol/L (98-107); Estimated GFR-MDRD 77; Glucose 104 mg/dL (70-105); Potassium 4.9 mmol/L (3.5-5.1); Sodium 140 mmol/L (136-145)
== END 2017-06-22 10:25 | disposition home or self-care (01) ==
LOC: LABBT 10:24
PROVIDERS: ATTEND Specialist
DX: Z01.812 Encounter for preprocedural laboratory examination (principal); K50.00 Crohn's disease of small intestine without complications; K43.2 Incisional hernia without obstruction or gangrene
CPT/HCPCS: 80048; 85025

== ENCOUNTER 2017-06-26 07:05 | Day surgery (SDC) | payer BC ==
[2017-06-22 10:43] VITALS: BMI 31.8
[2017-06-26] MEDS ORDERED: Ketorolac Tromethamine 30 MG/ML VIAL ONE (07:25)
[2017-06-26] MEDS ORDERED: CEFAZOLIN/Water 2 GM/20 ML SYRINGE ONE (07:26)
[2017-06-26] MEDS ORDERED: Bupivacaine/Epinephrine 0.25% 30 ML VIAL ONE (08:05)
[2017-06-26] MEDS ORDERED: Midazolam HCl 2 mg/2 ml Vial ONE (09:00)
[2017-06-26] MEDS ORDERED: Fentanyl 250 MCG/5 ML VIAL ONE (09:00)
[2017-06-26] MEDS ORDERED: Fentanyl 100 MCG/2 ML VIAL ONE (11:07)
[2017-06-26] MEDS ORDERED: Promethazine HCl 25 MG/ML VIAL ONE (11:14)
[2017-06-26] MEDS ORDERED: HYDROcodone/Acetaminophen 5/325 mg Tablet ONE (12:21)
[2017-06-26] MEDS ORDERED: Ondansetron ODT 4 MG TAB ONE (13:53)
--- NOTE | 2017-06-26 14:42 | OP ---
DATE OF PROCEDURE: 06/26/2017 PREOPERATIVE DIAGNOSIS: Incisional ventral hernia. POSTOPERATIVE DIAGNOSIS: Incisional ventral hernia. OPERATION PERFORMED: Open repair of incisional ventral hernia with 6.4 cm Ventralex mesh patch. SURGEON: Leonel Ojeda M.D. ANESTHESIA: General endotracheal. INDICATIONS: The patient is a 27-year-old male. He had previously undergone a laparoscopic surgery for small bowel resection. He developed a small but symptomatic hernia at infraumbilical incision si te and presents at this time for repair, primarily secondary to the discomfort he has with this. DESCRIPTION OF OPERATION: Informed consent was obtained. The patient was taken to the operating ute m where general anesthesia obtained with the patient in supine position. Abdomen was prepped with Ch loraPrep, draped in sterile fashion. Local anesthetic was infiltrated using 0.25% Marcaine with epin ephrine. The prior scar from his recent incision was excised. Dissection was carried through skin a nd subcutaneous tissue down to the fascia. It was noted to be a small hernia defect that was quickly identified that was about a cm or perhaps a little less in diameter. The fascial edges were dissect ed on each side of midline with electrocautery. Entry was gained into the preperitoneal space where the preperitoneum was dissected with a combination of sharp and blunt dissection. After looking at t he size of the subsequent fascial defect, I chose a 6.4 cm mesh patch. This was passed into the prep eritoneal space were it unfolded nicely and was easy to secure against the posterior aspect of the fa scia. The mesh tails were secured to the anterior fascia on either side of midline with a single int errupted suture of 0 Prolene. The superior and inferior aspect was closed with interrupted sutures o f 0 Prolene. I placed an additional suture of 0 Prolene superiorly and inferiorly incorporated bites of the anterior leaflet of mesh patch as well. When I digitally inspected, there was no evidence of any other fascial defect anywhere. The subcutan eous tissue was approximated with a running suture of 3-0 Monocryl. Skin edges approximated with 4-0 Monocryl subcuticular. Dermabond was placed externally. There were no complications. Blood loss w as minimal. The patient tolerated the procedure well and was taken to recovery in stable condition.
== END 2017-06-26 13:30 | disposition home or self-care (01) ==
LOC: SDC 07:05
PROVIDERS: ATTEND Specialist
PROC: 0WUF0JZ Supplement Abdominal Wall with Synthetic Substitute, Open Approach (ICD-10-PCS; principal; 2017-06-26)
DX: K43.2 Incisional hernia without obstruction or gangrene (principal); Z98.890 Other specified postprocedural states
CPT/HCPCS: 96374; J0131; J1885; J2250; J2550; J3010; Q0162

== ENCOUNTER 2017-08-24 14:34 | Emergency (ER) | payer BC ==
[2017-08-24 15:29] LABS: #Eosinphils 0.2 thou/uL (0.0-0.7); #Lymphocytes 2.4 thou/uL (1.20-3.40); #Monocytes 0.6 thou/uL (0.11-0.59); #Neutrophils 4.1 thou/uL (1.40-6.50); %Basophils 0.4 % (0.0-1.0); %Eosinophils 2.2 % (0.0-10.0); %Lymphocytes 32.3 % (21.0-51.0); %Monocytes 8.6 % (0.0-10.0); %Neutrophils 56.5 % (42.0-75.0); Hemoglobin 15.1 g/dL (14.0-18.0); Mean Corpuscular HGB CONC 32.5 g/dL (32.0-36.0); Mean Corpuscular Hemoglobin 26.1 pg (27.0-31.0); Mean Corpuscular Volume 80.2 fl (80.0-94.0); Platelet Count 246 thou/uL (130-400); Red Blood Cell (RBC) Count 5.79 mill/uL (4.70-6.10); White Blood Cell (WBC) Count 7.3 thou/uL (4.8-10.8)
[2017-08-24 15:51] LABS: ALT (SGPT) 21 U/L (8-55); AST (SGOT) 19 U/L (5-34); Albumin 4.6 g/dL (3.5-5.0); Alkaline Phosphatase 69 U/L (40-150); Anion Gap 11 mmol/L (10-20); BUN (Urea Nitrogen) 16 mg/dL (8.9-20.6); Bilirubin, Total 0.3 mg/dL (0.2-1.2); Calc. Creatinine Clearance 0 mL/min (70-130); Calcium 9.5 mg/dL (7.8-10.44); Carbon Dioxide 27 mmol/L (22-29); Chloride 105 mmol/L (98-107); Estimated GFR-MDRD 62; Glucose 95 mg/dL (70-105); Potassium 4.4 mmol/L (3.5-5.1); Protein, Total 7.6 g/dL (6.0-8.3); Sodium 139 mmol/L (136-145)
== END 2017-08-24 17:01 | disposition home or self-care (01) ==
LOC: ERS 14:34
DX: K92.2 Gastrointestinal hemorrhage, unspecified (principal); K50.90 Crohn's disease, unspecified, without complications; F17.220 Nicotine dependence, chewing tobacco, uncomplicated
CPT/HCPCS: 36415; 80053; 82274; 85025; 86850; 86900; 86901; 99284

== ENCOUNTER 2017-11-23 21:24 | Emergency (ER) | payer BC ==
[2017-11-23 22:36] LABS: #Basophils 0.1 thou/uL (0.0-0.2); #Eosinphils 0.1 thou/uL (0.0-0.7); #Lymphocytes 2.8 thou/uL (1.20-3.40); #Monocytes 0.6 thou/uL (0.11-0.59); #Neutrophils 4.1 thou/uL (1.40-6.50); %Basophils 0.7 % (0.0-1.0); %Eosinophils 1.7 % (0.0-10.0); %Lymphocytes 36.9 % (21.0-51.0); %Monocytes 7.2 % (0.0-10.0); %Neutrophils 53.4 % (42.0-75.0); Hemoglobin 15.2 g/dL (14.0-18.0); Mean Corpuscular HGB CONC 33.3 g/dL (32.0-36.0); Mean Corpuscular Hemoglobin 26.2 pg (27.0-31.0); Mean Corpuscular Volume 78.8 fL (78.0-98.0); Mean Platelet Volume 7.2 fL (7.4-10.4); Platelet Count 261 thou/uL (130-400); RBC Distribution Width 13.5 % (11.5-14.5); Red Blood Cell (RBC) Count 5.78 mill/uL (4.70-6.10); White Blood Cell (WBC) Count 7.6 thou/uL (4.8-10.8)
[2017-11-23 22:39] LABS: INR-International Normal Ratio 0.9; Prothrombin Time 12.7 SEC (12.0-14.7)
[2017-11-23 22:49] LABS: ALT (SGPT) 18 U/L (8-55); AST (SGOT) 34 U/L (5-34); Albumin 4.6 g/dL (3.5-5.0); Alkaline Phosphatase 78 U/L (40-150); Anion Gap 16 mmol/L (10-20); BUN (Urea Nitrogen) 19 mg/dL (8.9-20.6); Bilirubin, Total 0.4 mg/dL (0.2-1.2); Calc. Creatinine Clearance 0 mL/min (70-130); Calcium 9.8 mg/dL (7.8-10.44); Carbon Dioxide 19 mmol/L (22-29); Chloride 108 mmol/L (98-107); Estimated GFR-MDRD 82; Globulin 3.5 g/dL (2.4-3.5); Glucose 94 mg/dL (70-105); Protein, Total 8.1 g/dL (6.0-8.3); Sodium 138 mmol/L (136-145)
--- NOTE | 2017-11-23 23:02 | CT ---
CT ABDOMEN AND PELVIS WITH IV CONTRAST 11/23/17 HISTORY: Generalized abdominal pain, rectal bleeding. History of Crohn's disease. COMPARISON: 04/26/17. FINDINGS: The lung bases, liver, spleen, pancreas, bilateral adrenal glands, kidneys, abdominal aorta, and deco mpressed urinary bladder demonstrate a normal CT appearance. Postsurgical changes are seen involving a loop of small bowel in the pelvis with midline scarring in the upper pelvis as well as in the adipo se layer of the midline of the pelvis. There is no free fluid, fluid collection, or lymphadenopathy seen in the abdomen or pelvis. A normal caliber retrocecal appendix is present. No dilated loops of small bowel are seen and no catrachita l wall thickening is appreciated. IMPRESSION: 1. No acute findings in the abdomen or pelvis. 2. Evidence of prior postsurgical change involving loops of small bowel within the pelvis. 3. No CT evidence of appendicitis. POS: SYDNEY
[2017-11-23] MEDS ORDERED: Sucralfate 1 GM/10 ML UDCUP ONE (23:58)
== END 2017-11-24 00:04 | disposition home or self-care (01) ==
LOC: ERS 21:24
DX: R10.31 Right lower quadrant pain (principal); D64.9 Anemia, unspecified; F17.220 Nicotine dependence, chewing tobacco, uncomplicated
CPT/HCPCS: 74177; 80053; 82274; 85025; 85610; 85730; 86850; 86900; 86901; 94760

== ENCOUNTER 2017-12-21 08:01 | Outpatient (CLI) | payer BC ==
[2017-12-21 10:37] LABS: #Eosinphils 0.2 thou/uL (0.0-0.7); #Lymphocytes 2.8 thou/uL (1.20-3.40); #Monocytes 0.7 thou/uL (0.11-0.59); #Neutrophils 4.7 thou/uL (1.40-6.50); %Basophils 0.5 % (0.0-1.0); %Eosinophils 1.9 % (0.0-10.0); %Monocytes 8.5 % (0.0-10.0); Hemoglobin 15.6 g/dL (14.0-18.0); Mean Corpuscular Volume 81.2 fL (78.0-98.0); Mean Platelet Volume 6.5 fL (7.4-10.4); Platelet Count 287 thou/uL (130-400); Red Blood Cell (RBC) Count 6.01 mill/uL (4.70-6.10); White Blood Cell (WBC) Count 8.4 thou/uL (4.8-10.8)
[2017-12-21 11:15] LABS: Follow-up Hematology Comp? YES; Follow-up Result - Hematology REPORT FAXED
[2017-12-21 11:23] LABS: ALT (SGPT) 18 U/L (8-55); AST (SGOT) 17 U/L (5-34); Albumin 4.7 g/dL (3.5-5.0); Alkaline Phosphatase 75 U/L (40-150); Anion Gap 11 mmol/L (10-20); BUN (Urea Nitrogen) 14 mg/dL (8.9-20.6); Bilirubin, Total 0.6 mg/dL (0.2-1.2); CRP (Inflammatory) Less than 0.50 mg/dL (= or < 0.5); Calc. Creatinine Clearance 0 mL/min (70-130); Calcium 9.3 mg/dL (7.8-10.44); Carbon Dioxide 23 mmol/L (22-29); Chloride 105 mmol/L (98-107); Estimated GFR-MDRD 85; Globulin 2.7 g/dL (2.4-3.5); Glucose 83 mg/dL (70-105); Lipase 11 U/L (8-78); Potassium 4.3 mmol/L (3.5-5.1); Protein, Total 7.4 g/dL (6.0-8.3); Sodium 135 mmol/L (136-145)
[2017-12-21] MEDS ORDERED: Iopamidol 370 76% 100 ML VIAL ONE (12:02)
--- NOTE | 2017-12-21 12:23 | CT ---
CT ABDOMEN AND PELVIS WITH AND WITHOUT CONTRAST: Multiple axial tomograms are obtained through the abdomen and pelvis without IV enhancement. Postcon trast images were obtained in the arterial phase and in a delayed portal venous phase. An enterography protocol was followed. FINDINGS: Lung bases clear. Liver, spleen, and pancreas are unremarkable. Adrenal glands and kidneys unremarkable. Evaluation of small bowel reveals a radiopaque suture in the mid small bowel from prior surgical anas tomosis. There is slight dilatation of the small bowel loops at this anastomotic site. There is no evidence of mural thickening or luminal narrowing. No evidence of inflammatory change. The colon is unremarkable. IMPRESSION: Mild dilatation of the small bowel at the anastomotic site. Small bowel loops otherwise appear unrem arkable with no evidence of mural thickening or luminal narrowing identified. POS: SYDNEY
[2017-12-21 13:07] LABS: Follow-up Chemistry Comp? YES; Follow-up Result - Chemistry REPORT FAXED
== END 2017-12-21 08:02 | disposition home or self-care (01) ==
LOC: CT 08:01
PROVIDERS: ATTEND Internal Medicine
DX: K50.90 Crohn's disease, unspecified, without complications (principal); K63.89 Other specified diseases of intestine
CPT/HCPCS: 36415; 74178; 80053; 83690; 85025; 85652; 86140

== ENCOUNTER 2018-07-11 15:28 | Emergency (ER) | payer BC ==
[2018-07-11 17:06] LABS: #Eosinphils 0.2 thou/uL (0.0-0.7); #Lymphocytes 2.4 thou/uL (1.20-3.40); #Monocytes 0.7 thou/uL (0.11-0.59); #Neutrophils 4.8 thou/uL (1.40-6.50); %Basophils 0.4 % (0.0-1.0); %Eosinophils 2.4 % (0.0-10.0); %Neutrophils 59.1 % (42.0-75.0); Hemoglobin 15.7 g/dL (14.0-18.0); Mean Corpuscular Hemoglobin 26.1 pg (27.0-31.0); Mean Corpuscular Volume 81.4 fL (78.0-98.0); Mean Platelet Volume 6.7 fL (7.4-10.4); Platelet Count 272 thou/uL (130-400); RBC Distribution Width 12.6 % (11.5-14.5); White Blood Cell (WBC) Count 8.2 thou/uL (4.8-10.8)
[2018-07-11 17:10] LABS: Bilirubin Negative (Negative); Blood, Urine Negative (Negative); Clarity CLOUDY (Clear); Glucose, Urine (Dipstick) Negative (Negative); Leukocyte Negative (Negative); Nitrite Negative (Negative); Protein, Urine (Dipstick) Negative (Neg-Trace); Specific Gravity, Urine 1.024 (1.002-1.036); Urobilinogen 0.2 mg/dL (0.2-1.0)
[2018-07-11 17:26] LABS: ALT (SGPT) 17 U/L (8-55); AST (SGOT) 18 U/L (5-34); Albumin 4.6 g/dL (3.5-5.0); Alkaline Phosphatase 84 U/L (40-150); Anion Gap 11 mmol/L (10-20); BUN (Urea Nitrogen) 15 mg/dL (8.9-20.6); Bilirubin, Total 0.3 mg/dL (0.2-1.2); Calc. Creatinine Clearance 0 mL/min (70-130); Calcium 9.7 mg/dL (7.8-10.44); Carbon Dioxide 26 mmol/L (22-29); Chloride 106 mmol/L (98-107); Estimated GFR-MDRD 83; Globulin 3.1 g/dL (2.4-3.5); Glucose 102 mg/dL (70-105); Lipase 14 U/L (8-78); Protein, Total 7.7 g/dL (6.0-8.3); Sodium 139 mmol/L (136-145)
--- NOTE | 2018-07-11 20:54 | CT ---
CT ABDOMEN AND PELVIS WITH IV CONTRAST: 07/11/18 HISTORY: Abdominal pain. Nausea, diarrhea, constipation, dizziness. Crohn's disease diagnosed in 2016. Small bowel resection in April 2017. FINDINGS: Comparison is made with exam of 12/21/17 and 11/23/17. The lung bases are clear. The liver, spleen, pancreas, adrenal glands and kidneys are normal. No calc ified gallstones are noted. No free air, free fluid or lymphadenopathy seen in the abdomen or pelvis. A normal appearing appendix is present. Postop changes seen in the small bowel loops with mild dilat ation of the small bowel at the anastomotic site, also seen on prior exam. There is no evidence of hi gh grade bowel obstruction. IMPRESSION: No evidence of acute process. POS: SYDNEY
== END 2018-07-11 21:53 | disposition home or self-care (01) ==
LOC: ERS 15:28
DX: K59.00 Constipation, unspecified (principal); D64.9 Anemia, unspecified; F17.220 Nicotine dependence, chewing tobacco, uncomplicated
CPT/HCPCS: 36415; 74177; 80053; 81003; 83690; 85025

== ENCOUNTER 2018-10-14 11:37 | Emergency (ER) | payer BC, SELFPAY ==
[2018-10-14 12:01] LABS: #Eosinphils 0.2 thou/uL (0.0-0.7); #Lymphocytes 2.4 thou/uL (1.20-3.40); #Monocytes 0.5 thou/uL (0.11-0.59); #Neutrophils 4.1 thou/uL (1.40-6.50); %Basophils 0.6 % (0.0-1.0); %Eosinophils 2.2 % (0.0-10.0); %Lymphocytes 32.9 % (21.0-51.0); %Monocytes 7.5 % (0.0-10.0); Hemoglobin 16.4 g/dL (14.0-18.0); Mean Corpuscular HGB CONC 32.8 g/dL (32.0-36.0); Mean Corpuscular Hemoglobin 26.5 pg (27.0-31.0); Mean Corpuscular Volume 80.7 fL (78.0-98.0); Mean Platelet Volume 6.5 fL (7.4-10.4); Platelet Count 248 thou/uL (130-400); RBC Distribution Width 12.5 % (11.5-14.5); Red Blood Cell (RBC) Count 6.21 mill/uL (4.70-6.10); White Blood Cell (WBC) Count 7.3 thou/uL (4.8-10.8)
[2018-10-14 12:29] LABS: ALT (SGPT) 19 U/L (8-55); AST (SGOT) 18 U/L (5-34); Albumin 4.8 g/dL (3.5-5.0); Alkaline Phosphatase 83 U/L (40-150); Anion Gap 13 mmol/L (10-20); BUN (Urea Nitrogen) 12 mg/dL (8.9-20.6); Bilirubin, Total 0.5 mg/dL (0.2-1.2); Calc. Creatinine Clearance 0 mL/min (70-130); Calcium 10.3 mg/dL (7.8-10.44); Carbon Dioxide 26 mmol/L (22-29); Chloride 102 mmol/L (98-107); Estimated GFR-MDRD 75; Globulin 3.2 g/dL (2.4-3.5); Glucose 99 mg/dL (70-105); Lipase 12 U/L (8-78); Sodium 136 mmol/L (136-145)
[2018-10-14 12:54] LABS: Bilirubin Negative (Negative); Blood, Urine Negative (Negative); Clarity Clear (Clear); Glucose, Urine (Dipstick) Normal (Negative); Leukocyte Negative Leu/uL (Negative); Nitrite Negative (Negative); Protein, Urine (Dipstick) Negative (Neg-Trace); Urobilinogen Normal mg/dL (Less than 2)
== END 2018-10-14 13:15 | disposition home or self-care (01) ==
LOC: ERS 11:37
DX: R10.84 Generalized abdominal pain (principal); F17.220 Nicotine dependence, chewing tobacco, uncomplicated
CPT/HCPCS: 36415; 80053; 81003; 83690; 85025; 96372; J0500

== ENCOUNTER 2019-01-14 09:43 | Outpatient (CLI) | payer BC ==
--- NOTE | 2019-01-14 13:55 | CT ---
CT abdomen and pelvis with and without IV contrast enterography protocol. HISTORY: Abdominal pain. Crohn's disease. COMPARISON: 12/21/2017. FINDINGS: The lung bases are clear. Solid organs are intact. No free air or free fluid. No enlarged l ymph nodes. Urinary bladder is unremarkable. Opaque suture row of the small bowel at the mid anterior abdomen. No evidence of adjacent complicatio n. Appendix is not inflamed. No abnormal bowel wall enhancement or thickening. Terminal ileum has a norm al appearance. Nonspecific, nonenlarged lymph nodes scattered throughout the mesentery. IMPRESSION: Postoperative changes small bowel. No active inflammation or other significant abnormalit ies.
== END 2019-01-14 09:44 | disposition home or self-care (01) ==
LOC: CT 09:43
PROVIDERS: ATTEND Physician Assistant Medical
DX: K50.90 Crohn's disease, unspecified, without complications (principal); Z98.890 Other specified postprocedural states
CPT/HCPCS: 74178

== ENCOUNTER 2021-11-07 17:08 | Emergency (ER) | payer BC, OTHER ==
[~2021-11-07 17:08] MED LIST changes: -ISOVUE-370 76%-LOCM 1 ML ONE; +Iopamidol-370 76% 500 ML 1 ML ONE
[2021-11-07] MEDS ORDERED: Pantoprazole 40 MG VIAL ONE (19:08)
[2021-11-07 19:21] LABS: #Basophils 0.1 thou/uL (0.0-0.2); #Eosinphils 0.1 thou/uL (0.0-0.7); #Lymphocytes 2.7 thou/uL (1.20-3.40); #Monocytes 0.6 thou/uL (0.11-0.59); #Neutrophils 4.9 thou/uL (1.40-6.50); %Basophils 0.9 % (0.0-1.0); %Eosinophils 1.7 % (0.0-10.0); %Lymphocytes 32.2 % (21.0-51.0); %Monocytes 7.6 % (0.0-10.0); %Neutrophils 57.5 % (42.0-75.0); Hemoglobin 15.4 g/dL (14.0-18.0); Mean Corpuscular HGB CONC 32.9 g/dL (32.0-36.0); Mean Corpuscular Hemoglobin 27.2 pg (27.0-31.0); Mean Corpuscular Volume 82.8 fL (78.0-98.0); Mean Platelet Volume 6.5 fL (7.4-10.4); Platelet Count 290 thou/uL (130-400); RBC Distribution Width 12.6 % (11.5-14.5); Red Blood Cell (RBC) Count 5.66 mill/uL (4.70-6.10); White Blood Cell (WBC) Count 8.4 thou/uL (4.8-10.8)
[2021-11-07 19:44] LABS: ALT (SGPT) 26 U/L (8-55); AST (SGOT) 22 U/L (5-34); Albumin 4.7 g/dL (3.5-5.0); Alkaline Phosphatase 67 U/L (40-110); Anion Gap 11 mmol/L (10-20); BUN (Urea Nitrogen) 16 mg/dL (8.9-20.6); Bilirubin, Total 0.3 mg/dL (0.2-1.2); Calc. Creatinine Clearance 0 mL/min (70-130); Calcium 9.7 mg/dL (7.8-10.44); Carbon Dioxide 27 mmol/L (22-29); Chloride 105 mmol/L (98-107); Estimated GFR 89; Globulin 3.2 g/dL (2.4-3.5); Glucose 97 mg/dL (70-105); Lipase 10 U/L (8-78); Potassium 4.4 mmol/L (3.5-5.1); Protein, Total 7.9 g/dL (6.0-8.3); Sodium 139 mmol/L (136-145)
== END 2021-11-07 21:04 | disposition home or self-care (01) ==
LOC: ERS 17:08
DX: I88.0 Nonspecific mesenteric lymphadenitis (principal)
CPT/HCPCS: 36415; 74177; 80053; 83605; 83690; 85025; 96361; 96374; C9113; Q9967